=== PATIENT | male | born 1970 | race Caucasian/White ===

== ENCOUNTER 2017-02-01 15:40 | Emergency (ER) | payer BC, OTHER ==
[~2017-02-01] VITALS: Ht 182.9 cm; Wt 99.8 kg
[2017-02-01] MEDS ORDERED: SODIUM CHLORIDE 0.9% 1000 ML IV SCH (16:45)
[2017-02-01] MEDS ORDERED: ACETAMINOPHEN 325 MG TAB PO ONE (16:45)
[2017-02-01 17:40] LABS: ADD MORPHOLOGY? YES; BASO % 0.1 % (0.0-1.0); EOS % 0.3 % (0.0-3.0); LARGE UNSTAINED CELL # 0.2 K/mm3 (0.0-0.4); LARGE UNSTAINED CELL % 1.2 % (0.0-4.0); LYMPH # 0.8 K/mm3 (1.5-4.5); LYMPH % 5.3 % (24.0-44.0); MEAN CORPUSCULAR HEMOGLOBIN 20.8 pg (27.0-33.0); MEAN CORPUSCULAR HGB CONC 29.6 g/dl (32.0-36.5); MEAN CORPUSCULAR VOLUME 70.4 fl (80.0-96.0); MONO # 0.7 K/mm3 (0.0-0.8); MONO % 5.5 % (0.0-5.0); NEUTROPHILS # 10.8 K/mm3 (1.8-7.7); NEUTROPHILS % 87.5 % (36.0-66.0); PLATELET COUNT, AUTOMATED 271 k/mm3 (150-450); RED CELL DISTRIBUTION WIDTH 16.2 % (11.5-14.5); WHITE BLOOD COUNT 12.4 K/mm3 (4.0-10.0)
[2017-02-01 17:45] LABS: ALBUMIN 3.9 GM/DL (3.2-5.2); ALKALINE PHOSPHATASE 93 U/L (45-117); ALT/SGPT 15 U/L (12-78); ANION GAP 9 MEQ/L (8-16); AST/SGOT 14 U/L (15-37); BILIRUBIN,DIRECT 0.1 MG/DL (0.0-0.2); BILIRUBIN,TOTAL 0.6 MG/DL (0.2-1.0); BLOOD UREA NITROGEN 19 MG/DL (7-18); CALCIUM LEVEL 8.7 MG/DL (8.5-10.1); CARBON DIOXIDE LEVEL 25 MEQ/L (21-32); CHLORIDE LEVEL 105 MEQ/L (98-107); CREATININE FOR GFR 1.17 MG/DL (0.70-1.30); GLOMERULAR FILTRATION RATE > 60.0 (>60); GLUCOSE, FASTING 116 MG/DL (70-105); POTASSIUM SERUM 3.7 MEQ/L (3.5-5.1); SODIUM LEVEL 139 MEQ/L (136-145); TOTAL PROTEIN 7.8 GM/DL (6.4-8.2)
[2017-02-01] MEDS ORDERED: ISOVUE-370 76% 100ML VIAL (Q9967) As Ordered ONE (17:51)
[2017-02-01 17:56] LABS: INR 1.1
[2017-02-01 18:00] LABS: ANISOCYTOSIS 1+; HYPOCHROMASIA 1+; MICROCYTOSIS 2+; POLYCHROMASIA 1+
[2017-02-01 18:01] LABS: STOMATOCYTES 1+
--- NOTE | 2017-02-01 18:30 | REPUSA ---
CT of the abdomen and pelvis without contrast Clinical statement: Pain. Technique: Multiple axial CT images were obtained from the base of the lungs to the floor of the pelv is utilizing 5 mm axial slices without administration of contrast. Coronal and sagittal reconstructio ns were also obtained. No comparison is available. Findings: Chest: The visualized lung bases are clear. Abdomen: The kidneys are normal in size bilaterally. There is no evidence of hydronephrosis or nephro lithiasis. The liver, spleen, pancreas, gallbladder and adrenal glands are unremarkable. The aorta de monstrates normal caliber and contour. There is no abdominal lymphadenopathy or ascites. Pelvis: The bowel is unremarkable, with no obstructive or inflammatory changes. The patient is status post appendectomy. The urinary bladder is within normal limits. There is no pelvic lymphadenopathy o r ascites. The other pelvic structures appear unremarkable. Bones: There are no suspicious osseous abnormalities seen. Impression: Unremarkable CT examination of the abdomen and pelvis. No evidence of hydronephrosis or n ephrolithiasis. No obstructive or inflammatory bowel changes.
[2017-02-01] MEDS ORDERED: NS 1,000 ML IV ONE (19:00)
--- NOTE | 2017-02-01 19:42 | REP ---
TWO VIEW CHEST: There is no evidence of acute infiltrate. No pleural effusion is seen. The heart is normal in size. The mediastinal silhouette is unremarkable. The visualized osseous structures are intact. IMPRESSION: No acute pulmonary disease. Signed by Joel Samano MD 02/01/2017 08:39 P
[2017-02-01 20:50] VITALS: BP 135/75
--- NOTE | 2017-02-01 20:54 | ED PDOC ---
Provider Note DISCUSSED PT'S SYMPTOMS WITH PT AND FAMILY. DISCUSSED RESULTS FROM IMAGING AND LABWORK AND ADVISED DOES NOT MEET ADMISSION CRITERIA. PT PREFERS TO STAY, HE WENT TO URGENT CARE YESTERDAY, THEN [facility] [place] AND THEN [facility] TODAY FOR SAME SYMPTOMS. STATES HE IS WORRIED THAT HE WILL GO HOME AND FEEL THE SAME AND HAVE SYNCOPAL EPISODES WITH EXERTION. ADVISED THAT BECAUSE HE DOES NOT MEET ADMISSION CRITERIA, HIS INSURANCE WILL MOST LIKELY NOT COVER AN ADMISSION AND THERE IS NO PRESSING MATTER THAT REQUIRES IMMEDIATE ATTENTION AT THIS TIME. ADVISED WILL GIVE INFORMATION FOR FOLLOW UP WITH THE RESIDENT CLINIC, GENERAL SURGERY AND GI AND HE IS WELCOME TO CALL THESE OFFICES ON SATURDAY TO SCHEDULE APPOINTMENTS FOR FOLLOW UP. ALSO TO RETURN TO THE ER WITH ANY WORSENING SYMPTOMS. PT AND FAMILY VOICED UNDERSTANDING. JENIFFER BEAN PA-C Feb 01, 2017 20:54
== END 2017-02-01 21:11 | disposition home or self-care (01) ==
LOC: M ED 16:56
DX: R10.31 Right lower quadrant pain (principal); R10.32 Left lower quadrant pain; R19.5 Other fecal abnormalities; D64.9 Anemia, unspecified; I95.9 Hypotension, unspecified; J06.9 Acute upper respiratory infection, unspecified; R55 Syncope and collapse
CPT/HCPCS: 36415; 71020; 74177; 80048; 80076; 81001; 83690; 85025; 85610; 85730; 86850; 86900; 86901; 99284; Q9967

== ENCOUNTER → 2017-02-08 | Outpatient (REF) | payer BC ==
[2017-02-08 20:14] LABS: BASO % 0.2 % (0.0-1.0); EOS # 0.2 K/mm3 (0.0-0.50); EOS % 2.1 % (0.0-3.0); LYMPH # 1.6 K/mm3 (1.5-4.5); LYMPH % 15.6 % (24.0-44.0); MEAN CORPUSCULAR HEMOGLOBIN 20.6 pg (27.0-33.0); MEAN CORPUSCULAR HGB CONC 28.8 g/dl (32.0-36.5); MEAN CORPUSCULAR VOLUME 71.6 fl (80.0-96.0); MONO # 0.6 K/mm3 (0.0-0.8); MONO % 5.6 % (0.0-5.0); NEUTROPHILS # 7.4 K/mm3 (1.8-7.7); NEUTROPHILS % 75.6 % (36.0-66.0); RED CELL DISTRIBUTION WIDTH 15.9 % (11.5-14.5); RETIC HEMOGLOBIN CONTENT CHr 21.6 PG (24-36); RETICULOCYTE % ADVIA2120 2.9 % (0.5-1.5); WHITE BLOOD COUNT 9.8 K/mm3 (4.0-10.0)
[2017-02-08 20:17] LABS: PERCENT SATURATION 3.8 % (19.7-37.4)
[2017-02-08 20:24] LABS: FOLATE 18.1 NG/ML (>5.4)
== END ==
LOC: M LAB REF 16:18
PROVIDERS: ATTEND Family Medicine
DX: Z00.00 Encounter for general adult medical examination without abnormal findings (principal); D50.9 Iron deficiency anemia, unspecified; F32.9 Major depressive disorder, single episode, unspecified

== ENCOUNTER → 2017-02-27 | Outpatient (CLI) | payer BC ==
[~2017-02-27] VITALS: Ht 182.9 cm; Wt 99.8 kg
[~2017-02-27] MED LIST: IRON65TA PO; NS 1,000 ML IV SCH; PROPOFOL 500 MG/50 ML VIAL As Ordered ONE; RANI15TA PO; fentaNYL 100 MCG/2 ML INJECTION (J3010) As Ordered ONE
--- NOTE | 2017-02-27 14:50 | ROOR ---
Patient Name: Star Rosenbaum Procedure Date: 02/27/2017 2:18 PM Date of : 1970 Age: 47 Room: [facility] Gender: Male Note Status: Finalized Procedure: Upper GI endoscopy Indications: Iron deficiency anemia Providers: Gamaliel Quintero MD Referring MD: Lydia Lomas DO Requesting Provider: Medicines: Monitored Anesthesia Care Complications: No immediate complications. Procedure: Pre-Anesthesia Assessment: - Prior to the procedure, a History and Physical was performed, and patient medications and allergies were reviewed. The patient is competent. The risks and benefits of the procedure and the sedation options and risks were discussed with the patient. All questions were answered and informed consent was obtained. Patient identification and proposed procedure were verified by the physician, the nurse and the electric accounting machine operator in the endoscopy suite. Mental Status Examination: alert and oriented. Airway Examination: normal oropharyngeal airway and neck mobility. Respiratory Examination: clear to auscultation. CV Examination: normal. Prophylactic Antibiotics: The patient does not require prophylactic antibiotics. Prior Anticoagulants: The patient has taken no previous anticoagulant or antiplatelet agents. ASA Grade Assessment: I - A normal, healthy patient. After reviewing the risks and benefits, the patient was deemed in satisfactory condition to undergo the procedure. The anesthesia plan was to use monitored anesthesia care (MAC). Immediately prior to administration of medications, the patient was re-assessed for adequacy to receive sedatives. The heart rate, respiratory rate, oxygen saturations, blood pressure, adequacy of pulmonary ventilation, and response to care were monitored throughout the procedure. The physical status of the patient was re-assessed after the procedure. The Endoscope was introduced through the mouth, and advanced to the second part of duodenum. The upper GI endoscopy was accomplished without difficulty. The patient tolerated the procedure well. Findings: The examined esophagus was normal. The entire examined stomach was normal. The second portion of the duodenum was normal. Impression: - Normal esophagus. - Normal stomach. - Normal second portion of the duodenum. - No specimens collected. - Normal examination. Recommendation: - Discharge patient to home (ambulatory). Gamaliel Quintero MD Gamaliel Quintero MD 02/27/2017 2:49:50 PM This report has been signed electronically. Number of Addenda: 0 Note Initiated On: 02/27/2017 2:18 PM Estimated Blood Loss: Estimated blood loss: none.
--- NOTE | 2017-02-27 14:53 | ROOR ---
Patient Name: Star Rosenbaum Procedure Date: 02/27/2017 2:19 PM Date of : 1970 Age: 47 Room: [facility] Gender: Male Note Status: Finalized Procedure: Colonoscopy Indications: Iron deficiency anemia Providers: Gamaliel Quintero MD Referring MD: Lydia Lomas DO Requesting Provider: Medicines: Monitored Anesthesia Care Complications: No immediate complications. Estimated blood loss: Minimal. Procedure: Pre-Anesthesia Assessment: - Prior to the procedure, a History and Physical was performed, and patient medications and allergies were reviewed. The patient is competent. The risks and benefits of the procedure and the sedation options and risks were discussed with the patient. All questions were answered and informed consent was obtained. Patient identification and proposed procedure were verified by the physician, the nurse and the data governance consultant in the endoscopy suite. Mental Status Examination: alert and oriented. Airway Examination: normal oropharyngeal airway and neck mobility. Respiratory Examination: clear to auscultation. CV Examination: normal. Prophylactic Antibiotics: The patient does not require prophylactic antibiotics. Prior Anticoagulants: The patient has taken no previous anticoagulant or antiplatelet agents. ASA Grade Assessment: I - A normal, healthy patient. After reviewing the risks and benefits, the patient was deemed in satisfactory condition to undergo the procedure. The anesthesia plan was to use monitored anesthesia care (MAC). Immediately prior to administration of medications, the patient was re-assessed for adequacy to receive sedatives. The heart rate, respiratory rate, oxygen saturations, blood pressure, adequacy of pulmonary ventilation, and response to care were monitored throughout the procedure. The physical status of the patient was re-assessed after the procedure. The Colonoscope was introduced through the anus and advanced to the cecum, identified by appendiceal orifice and ileocecal valve. The colonoscopy was performed without difficulty. The patient tolerated the procedure well. The quality of the bowel preparation was good. Findings: The perianal and digital rectal examinations were normal. An ulcerated non-obstructing large mass was found in the cecum. The mass was partially circumferential (involving one-half of the lumen circumference). The mass measured two cm in length. No bleeding was present. This was biopsied with a cold forceps for histology. Estimated blood loss was minimal. No additional abnormalities were found on retroflexion. Impression: - Likely malignant tumor in the cecum. Biopsied. Recommendation: - Discharge patient to home (ambulatory). - Return to my office in 1 week. Gamaliel Quintero MD Gamaliel Quintero MD 02/27/2017 2:53:48 PM This report has been signed electronically. Number of Addenda: 0 Note Initiated On: 02/27/2017 2:19 PM Estimated Blood Loss: Estimated blood loss was minimal.
[2017-02-27 15:15] VITALS: BP 117/63
== END | disposition home or self-care (01) ==
LOC: M OPP 13:03
PROVIDERS: ATTEND Surgery
DX: D50.9 Iron deficiency anemia, unspecified (principal); C18.9 Malignant neoplasm of colon, unspecified; R10.84 Generalized abdominal pain; D62 Acute posthemorrhagic anemia; Z87.19 Personal history of other diseases of the digestive system; F41.9 Anxiety disorder, unspecified; F32.9 Major depressive disorder, single episode, unspecified; Z79.899 Other long term (current) drug therapy
CPT/HCPCS: 43235; 45380; 88305; 99156; 99157; J3010

== ENCOUNTER → 2017-02-28 | Outpatient (CLI) | payer BC ==
[~2017-02-28] MED LIST changes: -NS 1,000 ML IV SCH; -PROPOFOL 500 MG/50 ML VIAL As Ordered ONE; -fentaNYL 100 MCG/2 ML INJECTION (J3010) As Ordered ONE
--- NOTE | 2017-02-28 15:46 | REP ---
Clinical: Generalized abdominal pain. Technique: Supine and upright views of the abdomen and pelvis. Findings: Bowel gas pattern is nonspecific. Air-filled loops of small large bowel related to recent colonoscopy. No free air to suggest perforation. No organomegaly. No abnormal calcifications. Skeletal structures intact. Impression: Nonspecific bowel gas pattern. Signed by Joon Peñaloza MD 02/28/2017 03:38 P
== END ==
LOC: M RAD 15:08
PROVIDERS: ATTEND Surgery
DX: R10.84 Generalized abdominal pain (principal)

== ENCOUNTER → 2017-04-25 | Outpatient (REF) | payer BC ==
[2017-04-25 17:49] LABS: INR 1.06
== END ==
LOC: M LAB REF 16:26
PROVIDERS: ATTEND Internal Medicine Medical Oncology
DX: C18.0 Malignant neoplasm of cecum (principal)

== ENCOUNTER 2017-07-13 16:33 | Inpatient (IN) | payer BC ==
[~2017-07-13] VITALS: Ht 182.9 cm; Wt 90.8 kg
[2017-07-13] MEDS ORDERED: ONDA8TAB7 PO (16:43)
[2017-07-13] MEDS ORDERED: IMOD2TAB16 PO (16:43)
[2017-07-13] MEDS ORDERED: BUPR15TASR PO (16:43)
[2017-07-13 17:35] LABS: MEAN CORPUSCULAR HEMOGLOBIN 26.2 pg (27.0-33.0); MEAN CORPUSCULAR HGB CONC 34.6 g/dl (32.0-36.5); MEAN CORPUSCULAR VOLUME 75.6 fl (80.0-96.0); RED CELL DISTRIBUTION WIDTH 17.9 % (11.5-14.5); WHITE BLOOD COUNT 4.4 K/mm3 (4.0-10.0)
[2017-07-13 17:39] LABS: INR 0.95
[2017-07-13 17:59] LABS: ANION GAP 6 MEQ/L (8-16); BLOOD UREA NITROGEN 22 MG/DL (7-18); CALCIUM LEVEL 8.4 MG/DL (8.5-10.1); CARBON DIOXIDE LEVEL 30 MEQ/L (21-32); CHLORIDE LEVEL 101 MEQ/L (98-107); CREATININE FOR GFR 1.16 MG/DL (0.70-1.30); GLOMERULAR FILTRATION RATE > 60.0 (>60); GLUCOSE, FASTING 125 MG/DL (70-105); POTASSIUM SERUM 4.2 MEQ/L (3.5-5.1); SODIUM LEVEL 137 MEQ/L (136-145)
[2017-07-13] MEDS ORDERED: ISOVUE-370 76% 100ML VIAL (Q9967) As Ordered ONE (18:26)
--- NOTE | 2017-07-13 19:30 | REPUSA ---
CLINICAL HISTORY: Chest pain and shortness of breath. COMPARISON: No prior CTA of the chest available TECHNIQUE: A CT-pulmonary angiogram was performed. A dose of intravenous contrast was administered. A xial images were displayed, as were sagittal and coronal reconstructions. FINDINGS: Port is present in the right chest wall and terminating in the superior vena cava. There is evidence of extensive filling defect involving the right main pulmonary artery as well as ex tending into the right middle segmental and subsegmental branches of the right middle lobe and right lower lobe. The heart is enlarged. There is bilateral hilar adenopathy noted, non-specific possibly reactive. Note is made of bibasilar consolidations that may represent atelectasis versus pneumonia. On the righ t side consolidation may represent a pulmonary infarct. There is no evidence of thoracic aortic aneurysm or dissection. There is no evidence of pulmonary edema. No significant pleural or pericardial fluid collection is s een. There is no evidence of pneumothorax. Mild degenerative changes are noted in the spine. The included portion of the upper abdomen does not show significant abnormality. Small hiatal hernia is present. IMPRESSION: 1. Extensive PE on the right as discussed above. 2. Bilateral hilar adenopathy. 3. Bibasilar consolidations as above. 4. Small hiatal hernia. The findings are communicated to Jhony Dominguez at 7-15pm EST.
[2017-07-13] MEDS ORDERED: TYLE325T5 PO (20:01)
[2017-07-13] MEDS ORDERED: BUPR150T3 PO (20:01)
[2017-07-13] MEDS ORDERED: BISACODYL 5 MG TAB PO PRN (20:15)
[2017-07-13] MEDS ORDERED: HEPARIN SOD (PORCINE) 5000 UNITS/ML VIAL IV PRN (20:15)
[2017-07-13] MEDS ORDERED: ACETAMINOPHEN TAB 650MG DOSE (2X325MG) PO PRN (20:15)
[2017-07-13] MEDS ORDERED: HEPARIN SOD (PORCINE) 5000 UNITS/ML VIAL IV ONE (21:00)
[2017-07-13] MEDS: HEPARIN DRIP 25,000 UNITS in APPROPRIATE DILUENT 1 EA IV SCH (21:06)
[2017-07-13] MEDS ORDERED: SENOKOT S TAB PO PRN (22:00)
[2017-07-13] MEDS ORDERED: MOM 30ML SUSPENSION UDC PO PRN (22:00)
[2017-07-13] MEDS: MORPHINE 4 MG/ML 1ML SYRINGE IV PRN (22:54)
[2017-07-13] MEDS: ONDANSETRON 4MG/2ML VIAL (J2405) IV PRN (22:57)
[2017-07-13] MEDS ORDERED: KETOROLAC 30 MG/ML VIAL (J1885) IV ONE (23:00)
[2017-07-13] MEDS ORDERED: PERCOCET 5MG/325MG TAB PO ONE (23:00)
[2017-07-13] MEDS ORDERED: MORPHINE 2 MG/ML 1ML SYRINGE IV ONE (23:00)
--- NOTE | 2017-07-13 23:36 | HPE ---
DATE OF ADMISSION: 07/13/2017 PRIMARY CARE PROVIDER: Lydia Lomas DO. HOSPITALIST ATTENDING: Fredi Hemphill MD. GENERAL SURGEON: Gamaliel Quintero MD. MEDICAL ONCOLOGIST: Jennifer. CHIEF COMPLAINT: Right-sided chest and back pain HPI: 47 y/o male with past medical history significant for Adenocarcinoma of the colon diagnosed by colonoscopy 02/15 as workup for chronic iron deficiency anemia and chronic fatigue and near syncopal episodes, s/p four cycles of chemo- therapy last saturday with FOLFOX and 5-FU by Dr. Vela in [place] with plans for 12 cycles of chemotherapy presents to the emergency with several days of right-sided chest pain/shoulder pain radiating to the back between the ribs, sharp, shooting, and persistent associated with shortness of breath without diaphoresis, palpitations or lightheadedness. Patient describes the pain as worse with expiration, unable to sleep flat on the bed and has been sitting up. No pain meds taken at home. He denies palpitations, lightheadedness, or near syncopal episode. In the emergency room (ER), he was found to be afebrile. He denies any cough productive of sputum, fever or chills. White count was normal. CT of the chest shows extensive pulmonary embolism in the right main pulmonary artery extending into the right middle segmental and subsegmental branches of the right middle lobe and right lower lobe, reactive hilar adenopathy. Hospitalist service was called for admission for extensive right pulmonary embolism. The patient denies any fever, chills, headaches, changes in vision, ear discharge, tinnitus, rhinorrhea, sore throat, cough productive of sputum, nausea , vomiting, abdominal pain. Patient has a colostomy on the right. No weakness. No upper or lower extremity paresthesias. PAST MEDICAL HISTORY: 1. Adenocarcinoma of the colon s/p right hemicolectomy and colostomy.02/15 2. Iron deficiency anemia due to colon cancer 3. Anxiety. 4. Depression. PAST SURGICAL HISTORY: 1. Appendectomy. 2. Deviated septum repair 1986. 3. Wrist surgery 1998. 4. Elective cyst removal on the scalp. 5. 02/15 Right hemicolectomy, right colostomy HOME MEDICATIONS: - patient had undergone four cycles of FOLFOX 5-FU, plans for 12 cycles of chemotherapy - bupropion 150 twice a day - loperamide 2 mg every four as needed - Zofran 8 mg every 8 hours - acetaminophen 650 every 6 hours as needed for pain ALLERGIES: To MINOCYCLINE. SOCIAL HISTORY: Works as a schoolteacher. Denies any cigarette, alcohol use. FAMILY HISTORY: Grandfather maternal side with heart disease, of congestive heart failure, was on warfarin. Mother, father unknown medical problems. REVIEW OF SYSTEMS: 12-point system negative aside from positive findings from history of present illness (HPI). PHYSICAL EXAMINATION: Temperature 97.5, pulse 103, respiratory rate 18, blood pressure 111/75, 97% on room air. Generally, patient is awake, alert, oriented times three, answering questions appropriately. Pupils are equally round and reactive to light and accommodation. Extraocular muscles are intact. Anicteric sclerae. No jaundice. No pharyngeal erythema, tonsillar exudate or jugular venous distention. No cervical lymphadenopathy. Lungs: Symmetric breath sounds. Air entry is equal bilaterally. Clear to auscultation. No wheezing, rales or rhonchi. Right chest wall port. Entrance appears dry. No erythema or tenderness. Heart: S1, S2, sinus tachycardia. No murmurs, rubs or gallops. Abdomen is soft. Right colostomy bag is noted with a wound in the periumbilical area that appears clean with no drainage, no erythema, no significant tenderness. Positive bowel sounds times four quadrants. No rebound, guarding or hepatosplenomegaly. Extremities have no cyanosis, clubbing or any pitting edema. Skin is warm, pink in color, warm to touch. LABORATORY DATA: White count 4.4, hemoglobin 12, hematocrit 34, platelet count 153. Sodium 137, potassium 4.2, chloride 101, bicarbonate 30, BUN 22, creatinine 1.16 , glucose 125, calcium 8.4. INR 0.95, PTT 27. IMAGING STUDIES: CT chest shows extensive PE extending from the right main pulmonary artery into the right middle segmental, subsegmental branches of the right middle lobe and right lower lobe. A port is present in right chest wall terminating in superior vena cava. Heart is enlarged. Bilateral hilar adenopathy, nonspecific, possibly reactive. Bibasilar consolidations may represent atelectasis versus pneumonia. Consolidation may represent pulmonary infarct. No evidence of thoracic aneurysm or dissection. No evidence of pulmonary edema. No significant pleural or pericardial fluid collection. There is no evidence of pneumothorax. Small hiatal hernia is present. 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 Patient is undergoing chemotherapy status post right hemicolectomy complicated by abscess and drainage in the abdomen. Completed four cycles of FOLFOX and 5-FU with Dr. Vela in [place] with plans for 12 cycles of chemotherapy, presents with complaints of shooting sharp pain on the right shoulder into the back, chest, worse when he lies back accompanied with shortness of breath, found to have extensive filling defect involving the right main pulmonary artery extending into the right middle segmental and subsegmental branches of the right middle and right lower lobe admitted for anticoagulation. Patient will be admitted as an inpatient for two midnights assigned to Dr. Fredi Hemphill. IMPRESSION: 1. Pulmonary embolism. CT chest shows extensive filling defect involving the right main pulmonary artery into the right middle segmental and subsegmental branches of the right middle lobe and right lower lobe with bilateral hilar adenopathy most likely reactive, bibasilar consolidation may be atelectasis versus pneumonia. Patient will be given intravenous heparin and Coumadin after 24 hours of intravenous heparin. If the patient is reluctant to stay until the international normalized ratio (INR) is greater than two with goal of 2-3, another option would be Lovenox injections at 90 units subcutaneously every 12 hours,which clinical studies have shown to be superior in the treatment of PE in patients with malignancy or history of malignancy. These 2 treatment options have been explained to the patient. Lovenox will most likely need prior authorization. Patient and family services (PFS) should be consulted should the patient decide not to stay for heparin and Coumadin anticoagulation. Because of the extensive clots extending from the right main pulmonary artery including the right middle segmental, subsegmental branches of the right middle lobe and right lower lobe, other anticoagulants would not be approriate at this time. Therefore, we will not consider Pradaxa, Eliquis or Xarelto due to extensive clot and significant risk factors including malignancy, recent surgery. He is most appropriate to have Lovenox injections or heparin and Coumadin until the Coumadin is therapeutic with INR of 2-3. Patient will be monitored for any signs of bleeding and monitor patient's platelet counts for possible Heparin induced thrombocytopenia. 2. Adenocarcinoma of the colon diagnosed January 2017 status post four cycles of FOLFOX, 5-FU by Dr. Vela in [place]. Last chemotherapy was on Saturday. He is to complete 12 cycles of chemotherapy with no plans for radiation. Patient has a right colostomy. Appears to be working well. Complicated by an abscess around the periumbilical area, currently appears well healed with no drainage, erythema or significant tenderness. 3. Anxiety, depression. Resume home dose of bupropion. 4. Pain control with intravenous (IV) morphine as needed, as well as Percocet 1-2 tablets every four with bowel regimen Senokot-S and milk of magnesia. 5. Gastrointestinal (GI) prophylaxis. With Protonix. 6. Code status. FULL CODE. Patient will be assigned to Dr. rFedi Hemphill at 7 a.m. on 07/14/2017. cc: Lydia Lomas MD. [facility]
[2017-07-14 00:31] VITALS: BP 142/87
[2017-07-14] MEDS: MORPHINE 4 MG/ML 1ML SYRINGE IV PRN ×4 (02:28→22:19)
[2017-07-14 03:20] LABS: BASO % 0.5 % (0.0-1.0); EOS # 0.2 K/mm3 (0.0-0.50); EOS % 3.2 % (0.0-3.0); LARGE UNSTAINED CELL # 0.1 K/mm3 (0.0-0.4); LARGE UNSTAINED CELL % 1.7 % (0.0-4.0); LYMPH % 38.2 % (24.0-44.0); MEAN CORPUSCULAR HEMOGLOBIN 25.2 pg (27.0-33.0); MEAN CORPUSCULAR HGB CONC 32.9 g/dl (32.0-36.5); MEAN CORPUSCULAR VOLUME 76.7 fl (80.0-96.0); MONO # 0.3 K/mm3 (0.0-0.8); MONO % 5.1 % (0.0-5.0); NEUTROPHILS # 2.5 K/mm3 (1.8-7.7); NEUTROPHILS % 51.2 % (36.0-66.0); PLATELET COUNT, AUTOMATED 137 k/mm3 (150-450); RED CELL DISTRIBUTION WIDTH 18.8 % (11.5-14.5); WHITE BLOOD COUNT 4.9 K/mm3 (4.0-10.0)
[2017-07-14 03:31] LABS: INR 1.14
[2017-07-14 03:53] LABS: ANION GAP 9 MEQ/L (8-16); BLOOD UREA NITROGEN 22 MG/DL (7-18); CALCIUM LEVEL 8.5 MG/DL (8.5-10.1); CARBON DIOXIDE LEVEL 27 MEQ/L (21-32); CHLORIDE LEVEL 102 MEQ/L (98-107); CREATININE FOR GFR 1.08 MG/DL (0.70-1.30); GLOMERULAR FILTRATION RATE > 60.0 (>60); GLUCOSE, FASTING 111 MG/DL (70-105); POTASSIUM SERUM 3.3 MEQ/L (3.5-5.1); SODIUM LEVEL 138 MEQ/L (136-145)
[2017-07-14 04:00] VITALS: BP 129/85
[2017-07-14] MEDS: PERCOCET 5MG/325MG TAB PO PRN ×3 (06:23→17:02)
--- NOTE | 2017-07-14 07:29 | ECGEPIP ---
Stationary ECG Study [facility] - ED Test Date: 2017-07-13 Pat Name: CYNDI TRINIDAD Department: Room: [place] [address] Gender: M [employer] Facility Examiner: : 1970 Requested By: MATTHEW HANSON Order Number: [id number] Reading MD: Padmaja Haider Measurements Intervals [place] Rate: 85 P: 53 [place]: 190 QRS: -18 QRSD: 96 T: 53 QT: 381 QTc: 455 Interpretive Statements SINUS RHYTHM MODERATE ST DEPRESSION NO PRIOR FOR COMPARISON Electronically Signed On 07-14-2017 7:28:51 EDT by Padmaja Haider
[2017-07-14] MEDS ORDERED: POTASSIUM CHLORIDE 10 MEQ SR TABLET PO ONE (07:30)
--- NOTE | 2017-07-14 07:30 | REP ---
PA and lateral chest: Comparison is 02/01/2017. The lung oconnell are clear. Cardiac size is normal. The karrie, mediastinum, and bony thorax are unchanged. There is an indwelling right IJ central venous catheter with the tip at the confluence of the superior vena cava and right atrium, not present previously. Impression: No acute cardiopulmonary findings. Indwelling right IJ central venous catheter. Signed by Joel Melendez MD 07/14/2017 07:22 A
[2017-07-14 08:00] VITALS: BP 110/58
[2017-07-14] MEDS: buPROPion **XL** TABLET 150MG (WELLBUTRIN XL) PO SCH ×2 (08:46→20:59)
[2017-07-14] MEDS: PANTOPRAZOLE 40MG TAB (PROTONIX) PO SCH (08:46)
[2017-07-14] MEDS ORDERED: NS 1,000 ML IV ONE (09:00)
[2017-07-14] MEDS: HEPARIN DRIP 25,000 UNITS in APPROPRIATE DILUENT 1 EA IV SCH ×3 (10:15→20:59)
--- NOTE | 2017-07-14 11:45 | IPNPDOC ---
Text Note Date of Service The patient was seen on 07/14/17. NOTE Subjective: Patient states chest pain has significantly improved. No nausea/ vomiting. Occasionally has loose stools. Objective: Vitals: (see below) General: No acute distress, laying comfortably in bed. HEENT: Moist mucous membranes. Neck: No JVD or lymphadenopathy Cardiac: RRR, No murmurs Pulm: Clear to auscultation b/l. No wheezing, rhonchi Abd: NT/ND + BS. Ostomy in place. No leak. Ext: No edema or cyanosis Labs (see below) Images: CTA Chest 07/13/17 FINDINGS: Port is present in the right chest wall and terminating in the superior vena cava. There is evidence of extensive filling defect involving the right main pulmonary artery as well as extending into the right middle segmental and subsegmental branches of the right middle lobe and right lower lobe. The heart is enlarged. There is bilateral hilar adenopathy noted, non-specific possibly reactive. Note is made of bibasilar consolidations that may represent atelectasis versus pneumonia. On the right side consolidation may represent a pulmonary infarct. There is no evidence of thoracic aortic aneurysm or dissection. There is no evidence of pulmonary edema. No significant pleural or pericardial fluid collection is seen. There is no evidence of pneumothorax. Mild degenerative changes are noted in the spine. The included portion of the upper abdomen does not show significant abnormality. Small hiatal hernia is present. IMPRESSION: 1. Extensive PE on the right as discussed above. 2. Bilateral hilar adenopathy. 3. Bibasilar consolidations as above. 4. Small hiatal hernia. Assessment/Plan 1. Extensive PE- patient does have underlying malignancy for which she is undergoing chemotherapy. Patient is on heparin drip. We will change patient to Lovenox subcutaneous tomorrow after insurance confirmation. Echocardiogram to evaluate RV function pending. CE negative. Hemodynamically stable and not requiring O2. Will reach out to his oncologist tomorrow. 2. Hypokalemia - replaced. 3. Colon ca s/p hemicolectomy/ostomy - on chemo cycle 4 out of 12. F/u outpt. 4. NORAH - ferrous sulfate 5. B/l hilar adenopathy - ? reactive. No cough. Will need outpt f/u with ?PET scan with oncology. DVT prophy: Heparin VS,Fishbone, I+O VS, Fishbone, I+O Laboratory Tests 07/13/17 17:27 Red Blood Count 4.59, Mean Corpuscular Volume 75.6 L, Mean Corpuscular Hemoglobin 26.2 L, Mean Corpuscular Hemoglobin Concent 34.6, Red Cell Distribution Width 17.9 H, Calcium Level 8.4 L 07/14/17 03:07 Red Blood Count 4.72, Mean Corpuscular Volume 76.7 L, Mean Corpuscular Hemoglobin 25.2 L, Mean Corpuscular Hemoglobin Concent 32.9, Red Cell Distribution Width 18.8 H, Calcium Level 8.5, Neutrophils (%) (Auto) 51.2, Lymphocytes (%) (Auto) 38.2, Monocytes (%) (Auto) 5.1 H, Eosinophils (%) (Auto) 3.2 H, Basophils (%) (Auto) 0.5, Neutrophils # (Auto) 2.5, Lymphocytes # (Auto) 2.0, Monocytes # (Auto) 0.3, Eosinophils # (Auto) 0.2, Basophils # (Auto) 0.0, Total Creatine Kinase 49 Vital Signs Date Time Temp Pulse Resp B/P (MAP) Pulse Ox O2 Delivery O2 Flow Rate FiO2 07/14/17 10:56 20 Room Air 07/14/17 08:00 98.6 73 110/58 (75) 96 I&O- Last 24 Hours up to 6 AM 07/14/17 06:00 Intake Total 435 ml Output Total 275 ml Balance 160 ml SOHAN CRAWFORD MD Jul 14, 2017 11:45
--- NOTE | 2017-07-14 13:22 | ECHO ---
DATE OF SERVICE: 07/14/2017 REFERRING PROVIDER: Dr. Fredi Hemphill PATIENT LOCATION: Room 3212. REASON FOR THE ECHOCARDIOGRAM: Pulmonary embolism. 2D MEASUREMENTS: IVS: 1.1 cm LV: 4.7 cm LVPW: 1.1 cm LA: 2.9 cm Aorta: 3.3 cm DOPPLER MEASUREMENTS: Peak velocity across the aortic valve: 0.98 Peak velocity across the LVOT: 0.72 Mitral E: 0.51 Mitral A: 0.52 with a ratio of 1.0 2D COMMENTS: 1. Normal left ventricular size, wall thickness, and normal global left ventricular systolic function. The estimated left ventricular systolic ejection fraction is 60-65%. 2. Normal left atrium. Normal right atrium and right ventricle. 3. The atrial septum appeared to be normal without evidence of defect or shunt. 4. Normal aortic root. 5. Trace pericardial effusion noted, no evidence of cardiac tamponade. 6. The aortic valve, mitral valve, and tricuspid valve as well as the pulmonic valve appeared to be normal. The proximal pulmonary artery branches were not well visualized. 7. The inferior vena cava was not well visualized. DOPPLER: Only trace tricuspid regurgitation noted in limited views. The pulmonary artery systolic pressure is probably normal. Left ventricular diastolic parameters also appear to be normal. IMPRESSION: 1. Normal global left ventricular systolic function. Left ventricular diastolic function appeared to be normal. 2. Trace pericardial effusion, no evidence of cardiac tamponade. 3. The right heart chambers appeared to be normal. Could not accurately assess the pulmonary pressure, but it is probably normal. MTDD
[2017-07-14] MEDS: CALCIUM CARBONATE 500 MG CHEW U/D PO PRN ×2 (14:59→22:31)
[2017-07-14 16:00] VITALS: BP 132/81
[2017-07-14] MEDS ORDERED: WARFARIN SOD 5 MG TAB PO ONE (17:00)
[2017-07-14] MEDS: ONDANSETRON 4MG/2ML VIAL (J2405) IV PRN (19:29)
[2017-07-14 20:00] VITALS: BP 133/70
[2017-07-15] VITALS: BP 117/60
[2017-07-15 00:14] LABS: INR 1.07
[2017-07-15] MEDS ORDERED: SLF 3 ML SYR IV PRN (00:45)
[2017-07-15] MEDS: PERCOCET 5MG/325MG TAB PO PRN ×3 (01:09→19:39)
[2017-07-15 04:00] VITALS: BP 126/76
[2017-07-15 05:33] LABS: BASO % 0.4 % (0.0-1.0); EOS # 0.2 K/mm3 (0.0-0.50); EOS % 5.4 % (0.0-3.0); LARGE UNSTAINED CELL # 0.1 K/mm3 (0.0-0.4); LYMPH # 1.4 K/mm3 (1.5-4.5); LYMPH % 37.6 % (24.0-44.0); MEAN CORPUSCULAR HEMOGLOBIN 26.4 pg (27.0-33.0); MEAN CORPUSCULAR HGB CONC 34.5 g/dl (32.0-36.5); MEAN CORPUSCULAR VOLUME 76.5 fl (80.0-96.0); MONO # 0.2 K/mm3 (0.0-0.8); MONO % 4.5 % (0.0-5.0); NEUTROPHILS # 1.9 K/mm3 (1.8-7.7); NEUTROPHILS % 50.1 % (36.0-66.0); PLATELET COUNT, AUTOMATED 171 k/mm3 (150-450); RED CELL DISTRIBUTION WIDTH 18.2 % (11.5-14.5); WHITE BLOOD COUNT 3.8 K/mm3 (4.0-10.0)
[2017-07-15 05:42] LABS: INR 1.07
[2017-07-15 05:56] LABS: ANION GAP 8 MEQ/L (8-16); BLOOD UREA NITROGEN 17 MG/DL (7-18); CARBON DIOXIDE LEVEL 26 MEQ/L (21-32); CHLORIDE LEVEL 107 MEQ/L (98-107); CREATININE FOR GFR 0.96 MG/DL (0.70-1.30); GLOMERULAR FILTRATION RATE > 60.0 (>60); GLUCOSE, FASTING 120 MG/DL (70-105); POTASSIUM SERUM 3.8 MEQ/L (3.5-5.1); SODIUM LEVEL 141 MEQ/L (136-145)
[2017-07-15] MEDS: SLF 3 ML SYR IV SCH ×3 (06:40→23:03)
[2017-07-15 08:00] VITALS: BP 117/61
[2017-07-15] MEDS: PANTOPRAZOLE 40MG TAB (PROTONIX) PO SCH (08:39)
[2017-07-15] MEDS: buPROPion **XL** TABLET 150MG (WELLBUTRIN XL) PO SCH ×2 (08:39→21:04)
[2017-07-15] MEDS ORDERED: LOVE0.6I2 SC (10:22)
[2017-07-15 12:00] VITALS: BP 129/76
[2017-07-15] MEDS: HEPARIN DRIP 25,000 UNITS in APPROPRIATE DILUENT 1 EA IV SCH (12:41)
--- NOTE | 2017-07-15 13:32 | DS.PDOC ---
Discharge Summary General Date of Admission Jul 13, 2017 at 20:05 Date of Discharge 07/16/17 Attending Physician: SOHAN CRAWFORD MD Discharge Summary PROCEDURES PERFORMED DURING STAY: None. ADMITTING/DISCHARGE DIAGNOSES: 1. Acute Pulmonary Embolism 2. Hypokalemia - replaced. 3. Colon ca s/p hemicolectomy/ostomy - on chemo cycle 4 out of 12. 4. NORAH 5. B/l hilar adenopathy - ? reactive. 6. Skin lesion - f/u outpt. COMPLICATIONS/CHIEF COMPLAINT: CP HISTORY OF PRESENT ILLNESS/HOSPITAL COURSE: This is a 47-year-old male past medical history of colon cancer status post resection who is currently on chemotherapy for 12 cycles who presents complaining of chest pain and shortness of breath. Patient was found to have an extensive pulmonary embolism involving the right main pulmonary artery as well as extending to the right middle segmental and subsegmental branches of the right middle lobe and right lower lobe. The patient remained hemodynamically stable and was not hypoxic. Over the course of hospitalization, the patient's chest pain has improved on anticoagulation. He also did have an echocardiogram with normal RV function. Given that the patient does have recurrent malignancy and acute pulmonary embolism, he will be maintained on enoxaparin twice a day. He also noted a few areas that appear to be scab-like on the left shoulder, very small lesions for which she will be following up with his oncologist for possible dermatology referral. Patient is to follow-up with his primary care physician and oncologist in the next 1-2 weeks. Patient is return to ED if symptoms worsen. DISCHARGE MEDICATIONS: Please see below. ALLERGIES: Please see below. PHYSICAL EXAMINATION ON DISCHARGE: Vitals: (see below) General: No acute distress, laying comfortably in bed. HEENT: Moist mucous membranes. Neck: No JVD or lymphadenopathy Cardiac: RRR, No murmurs Pulm: Clear to auscultation b/l. No wheezing, rhonchi Abd: NT/ND + BS Ext: No edema or cyanosis LABORATORY DATA: Please see below. IMAGING: CTA Chest 07/13/17 FINDINGS: Port is present in the right chest wall and terminating in the superior vena cava. There is evidence of extensive filling defect involving the right main pulmonary artery as well as extending into the right middle segmental and subsegmental branches of the right middle lobe and right lower lobe. The heart is enlarged. There is bilateral hilar adenopathy noted, non-specific possibly reactive. Note is made of bibasilar consolidations that may represent atelectasis versus pneumonia. On the right side consolidation may represent a pulmonary infarct. There is no evidence of thoracic aortic aneurysm or dissection. There is no evidence of pulmonary edema. No significant pleural or pericardial fluid collection is seen. There is no evidence of pneumothorax. Mild degenerative changes are noted in the spine. The included portion of the upper abdomen does not show significant abnormality. Small hiatal hernia is present. IMPRESSION: 1. Extensive PE on the right as discussed above. 2. Bilateral hilar adenopathy. 3. Bibasilar consolidations as above. 4. Small hiatal hernia. PROGNOSIS: Guarded ACTIVITY: As tolerated. DIET: Regular diet DISCHARGE PLAN/DISPOSITION: Home DISCHARGE INSTRUCTIONS: 1. F/u with PCP and oncology in 1-2 weeks. DISCHARGE CONDITION: Stable. TIME SPENT ON DISCHARGE: Greater than 30 minutes. Vital Signs/I&Os Vital Signs Date Time Temp Pulse Resp B/P (MAP) Pulse Ox O2 Delivery O2 Flow Rate FiO2 07/15/17 12:00 96.2 72 18 129/76 (93) 98 Room Air I&O- Last 24 Hours up to 6 AM 07/15/17 06:00 Intake Total 2062 ml Output Total 4745 ml Balance -2683 ml Laboratory Data Labs 24H Laboratory Tests 2 07/14/17 16:34: Activated Partial Thromboplast Time 95.5H 07/14/17 23:35: Activated Partial Thromboplast Time 78.5H, Prothrombin Time 14.1, Prothromb Time International Ratio 1.07 07/15/17 05:06: Activated Partial Thromboplast Time 99.4H, Prothrombin Time 14.0, Prothromb Time International Ratio 1.07, White Blood Count 3.8L, Red Blood Count 4.17L, Hemoglobin 11.0L, Hematocrit 31.9L, Mean Corpuscular Volume 76.5L, Mean Corpuscular Hemoglobin 26.4L, Mean Corpuscular Hemoglobin Concent 34.5, Red Cell Distribution Width 18.2H, Platelet Count 171, Neutrophils (%) (Auto) 50.1, Lymphocytes (%) (Auto) 37.6, Monocytes (%) (Auto) 4.5, Eosinophils (%) (Auto) 5.4H, Basophils (%) (Auto) 0.4, Neutrophils # (Auto) 1.9, Lymphocytes # (Auto) 1.4L, Monocytes # (Auto) 0.2, Eosinophils # (Auto) 0.2, Basophils # (Auto) 0.0, Large Unclassified Cells % 2.0, Large Unclassified Cells # 0.1, Anion Gap 8, Glomerular Filtration Rate > 60.0, Blood Urea Nitrogen 17, Creatinine 0.96, Sodium Level 141, Potassium Level 3.8, Chloride Level 107, Carbon Dioxide Level 26, Calcium Level 8.0L CBC/BMP Laboratory Tests 07/15/17 05:06 Red Blood Count 4.17 L, Mean Corpuscular Volume 76.5 L, Mean Corpuscular Hemoglobin 26.4 L, Mean Corpuscular Hemoglobin Concent 34.5, Red Cell Distribution Width 18.2 H, Neutrophils (%) (Auto) 50.1, Lymphocytes (%) (Auto) 37.6, Monocytes (%) (Auto) 4.5, Eosinophils (%) (Auto) 5.4 H, Basophils (%) ( Auto) 0.4, Neutrophils # (Auto) 1.9, Lymphocytes # (Auto) 1.4 L, Monocytes # ( Auto) 0.2, Eosinophils # (Auto) 0.2, Basophils # (Auto) 0.0, Calcium Level 8.0 L Microbiology Microbiology 07/15/17 Gastrointestinal Tract Panel (PCR) - Final, Complete 07/14/17 Stool Occult Blood (DAVID) - Final, Complete Discharge Medications Scheduled Bupropion Hcl (Bupropion HCl Xl) 150 Mg Tab, 150 MG PO BID, (Reported) Enoxaparin (Lovenox) 80 Mg/0.8 Ml Syr, 90 MG SC BID Scheduled PRN Acetaminophen (Tylenol) 325 Mg Tab, 650 MG PO Q6H PRN for PAIN, (Reported) Loperamide Hcl (Imodium A-D) 2 Mg Tab, 2 MG PO Q4H PRN for DIARRHEA, (Reported) Ondansetron HCl (Ondansetron HCl) 8 Mg Tab, 8 MG PO Q8H PRN for NAUSEA, ( Reported) Allergies Coded Allergies: Minocycline (Verified Allergy, Unknown, 02/27/17) SOHAN CRAWFORD MD Jul 15, 2017 13:32
[2017-07-15 16:00] VITALS: BP 143/82
[2017-07-15] MEDS: ENOXAPARIN 100MG/1ML SYRINGE (J1650) SC SCH (18:33)
[2017-07-15] MEDS: CALCIUM CARBONATE 500 MG CHEW U/D PO PRN (19:39)
[2017-07-15] MEDS: LOPERAMIDE 2 MG CAP PO PRN ×2 (19:39→23:37)
[2017-07-15 20:00] VITALS: BP 137/68
[2017-07-16] VITALS: BP 126/76
[2017-07-16 04:45] VITALS: BP 118/68
[2017-07-16] MEDS: SLF 3 ML SYR IV SCH ×3 (05:21→22:11)
[2017-07-16 06:05] LABS: INR 0.99
[2017-07-16 06:21] LABS: ANION GAP 8 MEQ/L (8-16); BLOOD UREA NITROGEN 9 MG/DL (7-18); CALCIUM LEVEL 8.1 MG/DL (8.5-10.1); CARBON DIOXIDE LEVEL 27 MEQ/L (21-32); CHLORIDE LEVEL 106 MEQ/L (98-107); CREATININE FOR GFR 0.88 MG/DL (0.70-1.30); GLOMERULAR FILTRATION RATE > 60.0 (>60); GLUCOSE, FASTING 111 MG/DL (70-105); POTASSIUM SERUM 3.7 MEQ/L (3.5-5.1); SODIUM LEVEL 141 MEQ/L (136-145)
[2017-07-16 06:22] LABS: BASO % 0.4 % (0.0-1.0); EOS # 0.2 K/mm3 (0.0-0.50); EOS % 4.9 % (0.0-3.0); LARGE UNSTAINED CELL # 0.2 K/mm3 (0.0-0.4); LARGE UNSTAINED CELL % 4.2 % (0.0-4.0); LYMPH # 1.6 K/mm3 (1.5-4.5); LYMPH % 34.5 % (24.0-44.0); MEAN CORPUSCULAR HGB CONC 33.9 g/dl (32.0-36.5); MEAN CORPUSCULAR VOLUME 76.7 fl (80.0-96.0); MONO # 0.3 K/mm3 (0.0-0.8); MONO % 5.7 % (0.0-5.0); NEUTROPHILS # 2.3 K/mm3 (1.8-7.7); NEUTROPHILS % 50.2 % (36.0-66.0); PLATELET COUNT, AUTOMATED 180 k/mm3 (150-450); RED CELL DISTRIBUTION WIDTH 18.4 % (11.5-14.5); WHITE BLOOD COUNT 4.5 K/mm3 (4.0-10.0)
[2017-07-16] MEDS: ENOXAPARIN 100MG/1ML SYRINGE (J1650) SC SCH ×2 (06:47→18:29)
[2017-07-16 07:30] VITALS: BP 144/81
[2017-07-16] MEDS: PANTOPRAZOLE 40MG TAB (PROTONIX) PO SCH (08:34)
[2017-07-16] MEDS: buPROPion **XL** TABLET 150MG (WELLBUTRIN XL) PO SCH ×2 (08:34→20:14)
[2017-07-16] MEDS ORDERED: LOVE0.6I2 SC (10:40)
[2017-07-16] MEDS: PERCOCET 5MG/325MG TAB PO PRN ×2 (11:18→20:14)
[2017-07-16 12:00] VITALS: BP 142/77
[2017-07-16 16:00] VITALS: BP 145/72
[2017-07-16] MEDS: ONDANSETRON 4MG/2ML VIAL (J2405) IV PRN (16:42)
--- NOTE | 2017-07-16 20:54 | IPN ---
DATE: 07/16/2017 Patient seen and examined. Continues to report shorter pain. Denies any significant chest pain, palpitations, shortness of breath. Currently comfortable, reporting mild weakness. Counseling provided at bed side regarding compliance to Lovenox and Lovenox teaching also provided. VITAL SIGNS: Temperature 97.4, pulse 87, respirations 20, blood pressure 145/72, pulse ox 98% on room air. LABORATORY DATA: WBC 4.5, H H 10.7/31.7. Platelets 180. Chemistry: Sodium 141, potassium 3.7, chloride 106, bicarbonate 27, BUN 9, creatinine 0.88. PHYSICAL EXAMINATION: GENERAL: Patient alert and oriented times three in no acute distress. HEENT: Normocephalic, atraumatic. PULMONARY: Bilaterally clear to auscultation. CARDIAC: Regular rate and rhythm. Normal S1, S2. ABDOMEN: Soft, non-tender. Ostomy in place. EXTREMITIES: No clubbing, cyanosis or edema. ASSESSMENT AND PLAN: This is a 47-year-old male patient with underlying medical history of anxiety, depression, chronic iron deficiency anemia found to have a cecal mass on colonoscopy. EGD was negative January 2017. Pathology shows moderate differentiated adenocarcinoma of the colon. Patient is currently ongoing chemotherapy status post right hemicolectomy complicated with abscess and draining the abdomen, currently has a colostomy. Complete FOLFOX and 5-FOLLOWUP with Dr. Vela in [place] with plans of 12 cycles of chemotherapy presented with complaints of shooting sharp pain right shoulder to the back. Found to have extensive filling and right-sided pulmonary embolism (PE). PROBLEM: 1. Pulmonary embolism (PE). CT angio appreciated. Lovenox teaching has been provided. drug worker consulted for prior authorization for Lovenox given patient with underlying cancer with active treatment. Patient should be receiving Lovenox versus alternative agent. Counseling provided. Patient currently has not demonstrated that he is able to do injections. Subsequently patient's discharge is delayed for one more day for Lovenox teaching and patient reported that he will attempt to learn and try to give himself Lovenox later tonight. 2. Bilateral hilar adenopathy. Likely reactive to chemo radiation. Need outpatient follow up. 3. Hypokalemia resolved. 4. Colon cancer status post hemicolectomy with ostomy on chemotherapy. Follow up as outpatient. 5. Iron deficiency anemia. Continue supplementations. 6. Deep vein thrombosis prophylaxis. Patient on Lovenox for treatment of pulmonary embolism (PE). DISPOSITION: Pending patient demonstration of ability to administer Lovenox as outpatient likely discharge in next 24 hours.
[2017-07-16 21:09] VITALS: BP 123/74
[2017-07-17 00:56] VITALS: BP 121/70
[2017-07-17 05:21] VITALS: BP 114/71
[2017-07-17 05:56] LABS: BASO % 0.6 % (0.0-1.0); EOS # 0.1 K/mm3 (0.0-0.50); EOS % 3.7 % (0.0-3.0); LARGE UNSTAINED CELL # 0.1 K/mm3 (0.0-0.4); LARGE UNSTAINED CELL % 3.5 % (0.0-4.0); LYMPH # 1.2 K/mm3 (1.5-4.5); LYMPH % 34.4 % (24.0-44.0); MEAN CORPUSCULAR HEMOGLOBIN 25.9 pg (27.0-33.0); MEAN CORPUSCULAR HGB CONC 33.7 g/dl (32.0-36.5); MEAN CORPUSCULAR VOLUME 76.9 fl (80.0-96.0); MONO # 0.3 K/mm3 (0.0-0.8); NEUTROPHILS # 1.8 K/mm3 (1.8-7.7); NEUTROPHILS % 50.8 % (36.0-66.0); PLATELET COUNT, AUTOMATED 182 k/mm3 (150-450); RED CELL DISTRIBUTION WIDTH 18.8 % (11.5-14.5); WHITE BLOOD COUNT 3.6 K/mm3 (4.0-10.0)
[2017-07-17 05:58] LABS: INR 0.99
[2017-07-17 06:08] LABS: ANION GAP 7 MEQ/L (8-16); BLOOD UREA NITROGEN 10 MG/DL (7-18); CALCIUM LEVEL 7.8 MG/DL (8.5-10.1); CARBON DIOXIDE LEVEL 28 MEQ/L (21-32); CHLORIDE LEVEL 107 MEQ/L (98-107); CREATININE FOR GFR 0.97 MG/DL (0.70-1.30); GLOMERULAR FILTRATION RATE > 60.0 (>60); GLUCOSE, FASTING 109 MG/DL (70-105); POTASSIUM SERUM 3.8 MEQ/L (3.5-5.1); SODIUM LEVEL 142 MEQ/L (136-145)
[2017-07-17] MEDS: ENOXAPARIN 100MG/1ML SYRINGE (J1650) SC SCH (06:37)
[2017-07-17] MEDS: SLF 3 ML SYR IV SCH (06:37)
[2017-07-17 08:00] VITALS: BP 116/68
[2017-07-17] MEDS: PANTOPRAZOLE 40MG TAB (PROTONIX) PO SCH (08:30)
[2017-07-17] MEDS: buPROPion **XL** TABLET 150MG (WELLBUTRIN XL) PO SCH (08:30)
--- NOTE | 2017-07-19 12:58 | DSES ---
DATE OF ADMISSION: 07/13/2017 DATE OF DISCHARGE: 07/17/2017 FINAL DIAGNOSES: 1. Pulmonary embolism. 2. Bilateral hilar adenopathy. 3. Hypokalemia. 4. Colon cancer status post hemicolectomy with ostomy, on chemotherapy. 5. Iron deficiency anemia. PRIMARY CARE PROVIDER: Dr. Lydia Lomas GENERAL SURGEON: Dr. Gamaliel Quintero, oncologist in [place] HISTORY OF PRESENT ILLNESS: This is a 47-year-old male patient with underlying medical history of adenocarcinoma of the colon diagnosed by colonoscopy January 2017. Had workup chronic iron deficiency anemia, chronic fatigue, near syncope episode, status post fourth cycle of chemotherapy. Last was done on Saturday prior to admission, on FOLFOX with 5FU by Dr. Marie in [place] with plans for 12 cycles of chemotherapy. Presented to the emergency room with several days of right-sided chest pain and shoulder pain radiating to the back between the ribs, sharp, shooting pain and persistent associated with shortness of breath without diaphoresis, palpitations, lightheadedness. Patient described the pain as worse with expiration. Unable to sleep flat on the bed and has to be sitting up. In the emergency department (ED) patient with CT scan of the chest was done, showing pulmonary embolism (PE), right sided. Patient was initially started on heparin drip. HOSPITAL COURSE: Patient was admitted. Initially on heparin drip. Later switched to Lovenox. Patient and family services (PFS) was consulted for prior authorization for Lovenox. Case was discussed with pharmacy. Lovenox dosage was adjusted, given patient does not want to be administered Lovenox twice a day. Compliance was encouraged. Lovenox teaching was provided. Patient currently is able to administer Lovenox on his own. Has demonstrated on two separate occasions to the nursing staff. Subsequently, patient with improvement of patient's pain. Patient currently is tolerating oral, ready for discharge for further care as outpatient. Followup with patient's oncologist. VITAL SIGNS: Temperature 96.9, pulse 83, respirations 20, blood pressure 116/86, pulse oximetry 98% on room air. GENERAL: Patient alert and oriented times three in no acute distress. HEENT: Normocephalic, atraumatic. PULMONARY: Bilaterally clear. CARDIAC: Regular rate and rhythm. Normal S1, S2. ABDOMEN: Colostomy in place. Nontender. Positive bowel sounds. EXTREMITIES: No clubbing, cyanosis, or edema. LABORATORY DATA: WBC 3.6, hemoglobin and hematocrit 11.1/33.1, platelets 182. Chemistry: Sodium 142, potassium 3.8, chloride 107, bicarbonate 28, BUN 10, creatinine 0.97. DISCHARGE MEDICATIONS: - Lovenox 140 mg subcutaneous daily - acetaminophen 650 mg by mouth every 6 hours as needed - bupropion 150 mg by mouth twice a day - Imodium 2 mg by mouth every 4 hours as needed - Zofran 8 mg by mouth every 8 hours as needed DISCHARGE INSTRUCTIONS: Patient is instructed to followup with oncologist in 1-2 weeks, primary care provider in 10 days. Return to the hospital if symptoms worsen. ADDENDUM: 07/17/2017 Estimated time spent arranging discharge and counseling patient was 40 minutes.
== END 2017-07-17 13:21 | disposition home or self-care (01) | DRG 134 ==
LOC: M ED 16:33 → M ED INP 20:05 → M PCU 23:29
PROVIDERS: ADMIT General Practice; ATTEND Internal Medicine
DX: I26.99 Other pulmonary embolism without acute cor pulmonale (principal); C18.9 Malignant neoplasm of colon, unspecified; E87.6 Hypokalemia; D50.9 Iron deficiency anemia, unspecified; F32.9 Major depressive disorder, single episode, unspecified; K44.9 Diaphragmatic hernia without obstruction or gangrene; Z88.8 Allergy status to other drugs, medicaments and biological substances; Z93.3 Colostomy status; F41.9 Anxiety disorder, unspecified; Z79.899 Other long term (current) drug therapy

== ENCOUNTER → 2017-07-17 | Outpatient (REF) | payer BC ==
[~2017-07-17] MED LIST changes: +BUPR150T3 PO; +BUPR15TASR PO; +IMOD2TAB16 PO; +LOVE0.6I2 SC; +ONDA8TAB7 PO; +TYLE325T5 PO
== END ==
LOC: M LAB REF 05:14
PROVIDERS: ATTEND Internal Medicine Hematology & Oncology
DX: C18.9 Malignant neoplasm of colon, unspecified (principal)

== ENCOUNTER 2018-01-09 16:03 | Emergency (ER) | payer BC, MEDICAID ==
[2018-01-09 18:23] LABS: ANION GAP 9 MEQ/L (8-16); BLOOD UREA NITROGEN 17 MG/DL (7-18); CARBON DIOXIDE LEVEL 25 MEQ/L (21-32); CHLORIDE LEVEL 109 MEQ/L (98-107); CPK CREATINE PHOSPHOKINASE 184 U/L (39-308); GLOMERULAR FILTRATION RATE > 60.0 (>60); GLUCOSE, FASTING 102 MG/DL (70-100); MB/CK RELATIVE INDEX 0.54 (< OR =4); POTASSIUM SERUM 5.1 MEQ/L (3.5-5.1); SODIUM LEVEL 143 MEQ/L (136-145); TROPONIN I < 0.02 NG/ML (< 0.10)
[2018-01-09] MEDS ORDERED: ISOVUE-370 76% 100ML VIAL (Q9967) As Ordered (18:35)
== END 2018-01-09 20:35 | disposition home or self-care (01) ==
LOC: M ED 16:03
DX: R07.89 Other chest pain (principal); M25.519 Pain in unspecified shoulder; Z86.711 Personal history of pulmonary embolism; Z85.038 Personal history of other malignant neoplasm of large intestine; Z87.39 Personal history of other diseases of the musculoskeletal system and connective tissue; Z88.1 Allergy status to other antibiotic agents
CPT/HCPCS: Q9967

== ENCOUNTER → 2018-01-24 | Outpatient (CLI) | payer BC, MEDICAID ==
[~2018-01-24] MED LIST changes: -BUPR150T3 PO; -BUPR15TASR PO; +GASTROGRAFIN SOLUTION 30ML (Q9963) As Ordered; -IMOD2TAB16 PO; -IRON65TA PO; +ISOVUE-370 76% 100ML VIAL (Q9967) As Ordered; -LOVE0.6I2 SC; -ONDA8TAB7 PO; -RANI15TA PO; -TYLE325T5 PO
== END ==
LOC: M RAD 16:16
DX: K43.9 Ventral hernia without obstruction or gangrene (principal); K76.0 Fatty (change of) liver, not elsewhere classified; Z90.49 Acquired absence of other specified parts of digestive tract; Z93.2 Ileostomy status; K63.2 Fistula of intestine

== ENCOUNTER → 2018-03-14 | Outpatient (CLI) | payer BC, MEDICAID | LOC: M RAD 14:12 | DX: C18.2 Malignant neoplasm of ascending colon (principal); G62.0 Drug-induced polyneuropathy | CPT/HCPCS: Q9963 ==

== ENCOUNTER → 2018-03-18 | Outpatient (CLI) | payer BC, MEDICAID ==
[2018-03-18 15:10] LABS: BASO % 0.6 % (0.0-1.0); EOS # 0.2 10^3/uL (0.0-0.50); EOS % 3.4 % (0.0-3.0); HEMATOCRIT 41.1 % (42.0-52.0); HEMOGLOBIN 13.5 g/dl (13.5-17.5); IMMATURE GRANULOCYTE # 0.1 10^3/uL (0-0); IMMATURE GRANULOCYTE % 1.5 % (0-3.0); LYMPH # 1.6 10^3/uL (1.5-4.5); LYMPH % 23.6 % (24.0-44.0); MEAN CORPUSCULAR HGB CONC 32.8 g/dl (32.0-36.5); MEAN CORPUSCULAR VOLUME 88.4 fl (80.0-96.0); MONO # 0.6 10^3/uL (0.0-0.8); MONO % 8.8 % (0.0-5.0); NEUTROPHILS # 4.2 10^3/uL (1.8-7.7); NEUTROPHILS % 62.1 % (36.0-66.0); PLATELET COUNT, AUTOMATED 205 10^3/uL (150-450); RED BLOOD COUNT 4.65 10^6/uL (4.30-6.10); RED CELL DISTRIBUTION WIDTH 13.7 % (11.5-14.5); WHITE BLOOD COUNT 6.7 10^3/uL (4.0-10.0)
[2018-03-18 15:25] LABS: ALBUMIN 3.6 GM/DL (3.2-5.2); ALBUMIN/GLOBULIN RATIO 0.88 (1.00-1.93); ALKALINE PHOSPHATASE 88 U/L (45-117); ALT/SGPT 36 U/L (12-78); ANION GAP 5 MEQ/L (8-16); APPEARANCE, URINE HAZY (CLEAR); AST/SGOT 20 U/L (7-37); BACTERIA, URINE AUTO NEGATIVE (NEGATIVE); BILIRUBIN, URINE AUTO NEGATIVE (NEGATIVE); BILIRUBIN,TOTAL 0.3 MG/DL (0.2-1.0); BLOOD UREA NITROGEN 14 MG/DL (7-18); BLOOD, URINE BLOOD NEGATIVE (NEGATIVE); CALCIUM LEVEL 9.1 MG/DL (8.5-10.1); CARBON DIOXIDE LEVEL 28 MEQ/L (21-32); CHLORIDE LEVEL 108 MEQ/L (98-107); COLOR, URINE YELLOW (YELLOW); CREATININE FOR GFR 0.92 MG/DL (0.70-1.30); FERRITIN 97 NG/ML (26-388); GLOMERULAR FILTRATION RATE > 60.0 (>60); GLUCOSE, FASTING 116 MG/DL (70-100); GLUCOSE, URINE (UA) AUTO NEGATIVE (NEGATIVE); IRON (FE) 60 UG/DL (65-175); KETONE, URINE AUTO NEGATIVE (NEGATIVE); LEUKOCYTE ESTERASE, URINE AUTO NEGATIVE (NEGATIVE); MUCUS, URINE SMALL (NEGATIVE); NITRITE, URINE AUTO NEGATIVE (NEGATIVE); PERCENT SATURATION 20.3 % (19.7-50.0); POTASSIUM SERUM 4.3 MEQ/L (3.5-5.1); PROTEIN, URINE AUTO NEGATIVE (NEGATIVE); RBC, URINE AUTO 1 /HPF (0-3); SODIUM LEVEL 141 MEQ/L (136-145); SPECIFIC GRAVITY URINE AUTO 1.018 (1.002-1.035); SQUAMOUS EPITHELIAL CELL UR AU 0 /HPF (0-6); TOTAL IRON BINDING CAPACITY 295 UG/DL (250-450); TOTAL PROTEIN 7.7 GM/DL (6.4-8.2); UROBILINOGEN, URINE AUTO 0.2 mg/dL (0.0-2.0); WBC, URINE AUTO 1 /HPF (0-3)
== END ==
LOC: M LAB 14:26
DX: G62.0 Drug-induced polyneuropathy (principal); C18.2 Malignant neoplasm of ascending colon
CPT/HCPCS: 83550

== ENCOUNTER → 2018-05-29 | Outpatient (CLI) | payer BC, MEDICAID ==
[2018-05-29 14:29] LABS: TESTOSTERONE 357 NG/DL (241-827)
[2018-05-29 14:29] LABS: PROLACTIN 5.9 NG/ML (2.1-17.7)
[2018-05-29 14:30] LABS: ESTRADIOL 75.1 PG/ML (<39.8); FOLLICLE STIMULATING HORMONE 3.9 mIU/mL (1.4-18.1); LUTEINIZING HORMONE 3.6 mIU/mL (1.5-9.3)
[2018-05-30 08:48] LABS: SEX HORMONE BINDING GLOBULIN 21.2 nmol/L (16.5-55.9)
== END ==
LOC: M LAB 12:58
DX: E29.1 Testicular hypofunction (principal)
CPT/HCPCS: 83001

== ENCOUNTER → 2018-06-11 | Outpatient (CLI) | payer BC, MEDICAID | LOC: M RAD 12:59 | DX: C18.9 Malignant neoplasm of colon, unspecified (principal) | CPT/HCPCS: Q9963 ==

== ENCOUNTER → 2018-07-01 | Outpatient (CLI) | payer BC, MEDICAID ==
[~2018-07-01] MED LIST changes: +ACETAMINOPHEN 325 MG TAB As Ordered; -GASTROGRAFIN SOLUTION 30ML (Q9963) As Ordered; -ISOVUE-370 76% 100ML VIAL (Q9967) As Ordered; +LIDOCAINE 1% MDV 20ML VIAL As Ordered
== END ==
LOC: M RADPRO 12:55
DX: C49.4 Malignant neoplasm of connective and soft tissue of abdomen (principal); Z85.038 Personal history of other malignant neoplasm of large intestine
CPT/HCPCS: 49180

== ENCOUNTER → 2019-01-01 | Outpatient (CLI) | payer BC, MEDICAID ==
[~2019-01-01] MED LIST changes: -ACETAMINOPHEN 325 MG TAB As Ordered; +BUPR150T3 PO; +BUPR15TASR PO; +IMOD2TAB16 PO; +IRON65TA PO; -LIDOCAINE 1% MDV 20ML VIAL As Ordered; +LOVE0.6I2 SC; +MOTR200T44 PO; +ONDA8TAB7 PO; +RANI15TA PO; +ROBA500T PO; +TYLE325T5 PO
[2019-01-02 13:46] LABS: ALBUMIN 2.9 GM/DL (3.2-5.2); ALT/SGPT 98 U/L (12-78); BILIRUBIN,TOTAL 1.5 MG/DL (0.2-1.0); BLOOD UREA NITROGEN 17 MG/DL (7-18); CALCIUM LEVEL 5.8 MG/DL (8.5-10.1); CARBON DIOXIDE LEVEL 30 MEQ/L (21-32); CHLORIDE LEVEL 94 MEQ/L (98-107); CREATININE FOR GFR 1.12 MG/DL (0.70-1.30); GLOMERULAR FILTRATION RATE > 60.0 (>60); GLUCOSE, FASTING 240 MG/DL (70-100); POTASSIUM SERUM 4.7 MEQ/L (3.5-5.1); SODIUM LEVEL 129 MEQ/L (136-145); TOTAL PROTEIN 6.4 GM/DL (6.4-8.2)
[2019-01-02 13:56] LABS: RED BLOOD COUNT 4.69 10^6/uL (4.30-6.10)
[2019-01-02 13:57] LABS: HEMATOCRIT 42.9 % (42.0-52.0); MEAN CORPUSCULAR HEMOGLOBIN 29.9 pg (27.0-33.0); MEAN CORPUSCULAR HGB CONC 34.2 g/dl (32.0-36.5); MEAN CORPUSCULAR VOLUME 87.2 fl (80.0-96.0); PLATELET COUNT, AUTOMATED 259 10^3/uL (150-450)
[2019-01-02 13:58] LABS: WHITE BLOOD COUNT 7.7 10^3/uL (4.0-10.0)
== END ==
LOC: M LRY 14:29
PROVIDERS: ATTEND Internal Medicine Hematology & Oncology
DX: Z79.899 Other long term (current) drug therapy (principal)

== ENCOUNTER → 2019-01-14 | Outpatient (CLI) | payer BC, MEDICAID ==
[2019-01-14 17:30] LABS: BASO % 0.4 % (0.0-1.0); EOS # 0.2 10^3/uL (0.0-0.50); EOS % 3.4 % (0.0-3.0); HEMATOCRIT 36.6 % (42.0-52.0); HEMOGLOBIN 12.7 g/dl (13.5-17.5); LYMPH # 1.3 10^3/uL (1.5-4.5); LYMPH % 23.1 % (24.0-44.0); MEAN CORPUSCULAR HGB CONC 34.7 g/dl (32.0-36.5); MEAN CORPUSCULAR VOLUME 89.3 fl (80.0-96.0); MONO # 0.6 10^3/uL (0.0-0.8); MONO % 11.3 % (0.0-5.0); NEUTROPHILS # 3.4 10^3/uL (1.8-7.7); PLATELET COUNT, AUTOMATED 200 10^3/uL (150-450); WHITE BLOOD COUNT 5.6 10^3/uL (4.0-10.0)
[2019-01-14 18:26] LABS: ALT/SGPT 34 U/L (12-78); BILIRUBIN,TOTAL 0.6 MG/DL (0.2-1.0); BLOOD UREA NITROGEN 17 MG/DL (7-18); CALCIUM LEVEL 7.2 MG/DL (8.5-10.1); CARBON DIOXIDE LEVEL 27 MEQ/L (21-32); CHLORIDE LEVEL 100 MEQ/L (98-107); CREATININE FOR GFR 0.87 MG/DL (0.70-1.30); GLOMERULAR FILTRATION RATE > 60.0 (>60); GLUCOSE, FASTING 154 MG/DL (70-100); POTASSIUM SERUM 4.1 MEQ/L (3.5-5.1); SODIUM LEVEL 134 MEQ/L (136-145); TOTAL PROTEIN 6.1 GM/DL (6.4-8.2)
== END ==
LOC: M LRY 12:42
PROVIDERS: ATTEND Internal Medicine Hematology & Oncology
DX: Z51.81 Encounter for therapeutic drug level monitoring (principal); Z79.899 Other long term (current) drug therapy; C16.2 Malignant neoplasm of body of stomach; G62.0 Drug-induced polyneuropathy

== ENCOUNTER → 2019-01-29 | Outpatient (CLI) | payer BC, MEDICAID ==
[2019-01-29 20:44] LABS: BASO % 0.6 % (0.0-1.0); EOS # 0.1 10^3/uL (0.0-0.50); EOS % 1.2 % (0.0-3.0); HEMATOCRIT 35.6 % (42.0-52.0); HEMOGLOBIN 12.1 g/dl (13.5-17.5); LYMPH # 1.3 10^3/uL (1.5-4.5); LYMPH % 25.1 % (24.0-44.0); MEAN CORPUSCULAR HEMOGLOBIN 29.2 pg (27.0-33.0); MONO # 0.7 10^3/uL (0.0-0.8); MONO % 13.4 % (0.0-5.0); NEUTROPHILS # 2.9 10^3/uL (1.8-7.7); NEUTROPHILS % 57.3 % (36.0-66.0); PLATELET COUNT, AUTOMATED 202 10^3/uL (150-450); RED BLOOD COUNT 4.14 10^6/uL (4.30-6.10)
[2019-01-29 22:01] LABS: ALBUMIN 3.3 GM/DL (3.2-5.2); ALT/SGPT 46 U/L (12-78); BILIRUBIN,TOTAL 0.4 MG/DL (0.2-1.0); BLOOD UREA NITROGEN 13 MG/DL (7-18); CALCIUM LEVEL 7.7 MG/DL (8.5-10.1); CARBON DIOXIDE LEVEL 21 MEQ/L (21-32); CHLORIDE LEVEL 107 MEQ/L (98-107); GLOMERULAR FILTRATION RATE > 60.0 (>60); GLUCOSE, FASTING 138 MG/DL (70-100); POTASSIUM SERUM 3.5 MEQ/L (3.5-5.1); SODIUM LEVEL 138 MEQ/L (136-145); TOTAL PROTEIN 6.4 GM/DL (6.4-8.2)
== END ==
LOC: M LRY 16:05
PROVIDERS: ATTEND Internal Medicine Hematology & Oncology
DX: C18.2 Malignant neoplasm of ascending colon (principal); G62.0 Drug-induced polyneuropathy; Z79.899 Other long term (current) drug therapy

== ENCOUNTER 2019-02-10 06:31 | Day surgery (SDC) | payer BC, MEDICAID ==
[~2019-02-10] VITALS: Ht 182.9 cm; Wt 102.1 kg
[~2019-02-10 06:31] MED LIST changes: +ESCI10TA2 PO; +GABA-843 PO; +NS 1,000 ML IV ONE; +OMEP20TA PO
[2019-02-10] MEDS ORDERED: PROPOFOL 500 MG/50 ML VIAL As Ordered ONE ×2 (07:38→08:27)
[2019-02-10] MEDS ORDERED: LIDOCAINE 2% INJ 100 MG/5 ML SDV (FOR ANES.) As Ordered ONE (07:38)
--- NOTE | 2019-02-10 08:04 | ROOR ---
Patient Name: Star Rosenbaum Procedure Date: 02/10/2019 7:36 AM Date of : 1970 Age: 49 Room: [facility] Gender: Male Note Status: Finalized Procedure: Colonoscopy Indications: Hematochezia Providers: Russ DENNIS MD Referring MD: Lydia Lomas DO, Alka Srivastava Requesting Provider: Medicines: Monitored Anesthesia Care Complications: No immediate complications. Procedure: Pre-Anesthesia Assessment: - The heart rate, respiratory rate, oxygen saturations, blood pressure, adequacy of pulmonary ventilation, and response to care were monitored throughout the procedure. The Colonoscope was introduced through the anus and advanced to the ileocolonic anastomosis. The colonoscopy was performed without difficulty. The patient tolerated the procedure well. The quality of the bowel preparation was good. Findings: The perianal and digital rectal examinations were normal. There was evidence of a prior end-to-side ileo-colonic anastomosis in the mid transverse colon. This was patent and was characterized by friable mucosa, moderate stenosis, ulceration and an intact staple line. The anastomosis was traversed. This was biopsied with a cold forceps for histology. Internal hemorrhoids were found during retroflexion. The hemorrhoids were moderate. The exam was otherwise without abnormality on direct and retroflexion views. Impression: - Patent but stenosed end-to-side ileo-colonic anastomosis, characterized by friable mucosa, shallow erosion/ulceration, moderate stenosis and an intact staple line. Biopsied. - The anastomotic stenosis is passable with the pediatric colonoscope and the neoterminal ileum is normal in appearance for 10-15 cm. - Internal hemorrhoids. - The examination was otherwise normal on direct and retroflexion views. - (I suspect intermittent minor oozing/bleeding from anastomosis site, however cannot r/o intermittent hemorrhoidal bleeding). - (If deemed appropriate, consideration may be given to revision of the anastomosis--to be discussed) Recommendation: - Use fiber, for example Citrucel, Fibercon, Konsyl or Metamucil. - Miralax 1 capful (17 grams) in 8 ounces of water PO daily. - Use Pentasa 1 gram PO QID. - (the script was sent to your pharmacy on file). Russ Dennis MD Russ DENNIS MD 02/10/2019 8:03:57 AM This report has been signed electronically. Number of Addenda: 0 Note Initiated On: 02/10/2019 7:36 AM Estimated Blood Loss: Estimated blood loss: none.
[2019-02-10 08:15] VITALS: BP 133/75
== END 2019-02-10 08:24 | disposition home or self-care (01) ==
LOC: M OPP 06:31
PROVIDERS: ATTEND Internal Medicine Gastroenterology
DX: K92.1 Melena (principal); K64.8 Other hemorrhoids; Z98.0 Intestinal bypass and anastomosis status

== ENCOUNTER → 2019-02-11 | Outpatient (CLI) | payer BC, MEDICAID ==
[~2019-02-11] MED LIST changes: -NS 1,000 ML IV ONE
[2019-02-11 20:24] LABS: BASO % 0.8 % (0.0-1.0); EOS # 0.1 10^3/uL (0.0-0.50); EOS % 2.7 % (0.0-3.0); HEMATOCRIT 35.2 % (42.0-52.0); HEMOGLOBIN 12.1 g/dl (13.5-17.5); LYMPH # 1.3 10^3/uL (1.5-4.5); LYMPH % 24.4 % (24.0-44.0); MEAN CORPUSCULAR HEMOGLOBIN 29.2 pg (27.0-33.0); MEAN CORPUSCULAR HGB CONC 34.4 g/dl (32.0-36.5); MEAN CORPUSCULAR VOLUME 84.8 fl (80.0-96.0); MONO # 0.4 10^3/uL (0.0-0.8); MONO % 8.6 % (0.0-5.0); NEUTROPHILS % 58.6 % (36.0-66.0); PLATELET COUNT, AUTOMATED 189 10^3/uL (150-450); RED BLOOD COUNT 4.15 10^6/uL (4.30-6.10); WHITE BLOOD COUNT 5.1 10^3/uL (4.0-10.0)
[2019-02-11 20:36] LABS: ALBUMIN 3.3 GM/DL (3.2-5.2); ALT/SGPT 46 U/L (12-78); BILIRUBIN,TOTAL 0.3 MG/DL (0.2-1.0); BLOOD UREA NITROGEN 22 MG/DL (7-18); CALCIUM LEVEL 7.6 MG/DL (8.5-10.1); CARBON DIOXIDE LEVEL 22 MEQ/L (21-32); CHLORIDE LEVEL 106 MEQ/L (98-107); CREATININE FOR GFR 1.18 MG/DL (0.70-1.30); GLOMERULAR FILTRATION RATE > 60.0 (>60); GLUCOSE, FASTING 142 MG/DL (70-100); POTASSIUM SERUM 3.7 MEQ/L (3.5-5.1); SODIUM LEVEL 140 MEQ/L (136-145); TOTAL PROTEIN 6.3 GM/DL (6.4-8.2)
== END ==
LOC: M LRY 16:37
PROVIDERS: ATTEND Internal Medicine Hematology & Oncology
DX: Z79.899 Other long term (current) drug therapy (principal)

== ENCOUNTER → 2019-02-24 | Outpatient (CLI) | payer BC, MEDICAID ==
[2019-02-24 20:42] LABS: BASO % 0.4 % (0.0-1.0); EOS # 0.2 10^3/uL (0.0-0.50); EOS % 3.7 % (0.0-3.0); LYMPH # 1.6 10^3/uL (1.5-4.5); LYMPH % 28.5 % (24.0-44.0); MONO # 0.4 10^3/uL (0.0-0.8); MONO % 7.1 % (0.0-5.0); NEUTROPHILS # 3.1 10^3/uL (1.8-7.7); NEUTROPHILS % 55.9 % (36.0-66.0); PLATELET COUNT, AUTOMATED 242 10^3/uL (150-450); WHITE BLOOD COUNT 5.5 10^3/uL (4.0-10.0)
[2019-02-24 21:20] LABS: HEMATOCRIT 35.4 % (42.0-52.0); HEMOGLOBIN 11.8 g/dl (13.5-17.5); MEAN CORPUSCULAR HEMOGLOBIN 27.6 pg (27.0-33.0); MEAN CORPUSCULAR HGB CONC 33.3 g/dl (32.0-36.5); MEAN CORPUSCULAR VOLUME 82.7 fl (80.0-96.0); RED BLOOD COUNT 4.28 10^6/uL (4.30-6.10)
[2019-02-24 21:52] LABS: ALBUMIN 3.4 GM/DL (3.2-5.2); ALT/SGPT 40 U/L (12-78); BILIRUBIN,TOTAL 0.4 MG/DL (0.2-1.0); BLOOD UREA NITROGEN 30 MG/DL (7-18); CALCIUM LEVEL 7.9 MG/DL (8.5-10.1); CARBON DIOXIDE LEVEL 23 MEQ/L (21-32); CHLORIDE LEVEL 103 MEQ/L (98-107); CREATININE FOR GFR 1.18 MG/DL (0.70-1.30); GLOMERULAR FILTRATION RATE > 60.0 (>60); GLUCOSE, FASTING 131 MG/DL (70-100); POTASSIUM SERUM 3.8 MEQ/L (3.5-5.1); SODIUM LEVEL 137 MEQ/L (136-145); TOTAL PROTEIN 6.5 GM/DL (6.4-8.2)
== END ==
LOC: M LRY 16:50
PROVIDERS: ATTEND Internal Medicine Hematology & Oncology
DX: C18.2 Malignant neoplasm of ascending colon (principal); G62.0 Drug-induced polyneuropathy; Z79.899 Other long term (current) drug therapy

== ENCOUNTER 2019-03-06 21:25 | Emergency (ER) | payer BC, MEDICAID ==
[~2019-03-06] VITALS: Ht 182.9 cm; Wt 102.3 kg
[2019-03-06] MEDS ORDERED: IMOD2TAB16 PO (21:45)
[2019-03-06] MEDS ORDERED: METOCLOPRAMIDE INJ 10MG/2ML VIAL (J2765) IV ONE (22:15)
[2019-03-06] MEDS ORDERED: NS 1,000 ML IV ONE (22:15)
--- NOTE | 2019-03-06 23:39 | REPVR ---
EXAM: CT Abdomen and Pelvis Without Contrast EXAM DATE/TIME: 03/06/2019 11:01 PM CLINICAL HISTORY: 49 years old, male; Signs and symptoms; Other: Cold/flu symptoms; Additional info: Eval enteral obstruct TECHNIQUE: Imaging protocol: Axial computed tomography images of the abdomen and pelvis without contrast. Coronal and sagittal reformatted images were created and reviewed. Radiation optimization: All CT scans at this facility use at least one of these dose optimization techniques: automated exposure control; mA and/or kV adjustment per patient size (includes targeted exams where dose is matched to clinical indication); or iterative reconstruction. COMPARISON: CT ABD PELVIS WITH CONTRAST 06/11/2018 2:32 PM FINDINGS: Lower thorax: No acute findings. ABDOMEN: Liver: There is a diffuse decrease in hepatic parenchymal density, consistent with fatty infiltration. Gallbladder and bile ducts: Normal. No calcified stones. No ductal dilation. Pancreas: Normal. No ductal dilation. Spleen: Normal. No splenomegaly. Adrenals: Normal. No mass. Kidneys and ureters: Normal. No hydronephrosis. Stomach and bowel: Status post right hemicolectomy. Normal appearance of the anastomosis. Small bowel sutures in the lower abdomen to the right of midline. Ahaustral appearance of the colon may be related to chronic colitis. No acute inflammation demonstrated. No small bowel obstruction. Appendix: No evidence of appendicitis. PELVIS: Bladder: Unremarkable as visualized. Reproductive: The prostate gland demonstrates mild hyperplasia. ABDOMEN and PELVIS: Intraperitoneal space: Normal. No free air. No significant fluid collection. Bones/joints: No acute fracture. No dislocation. Soft tissues: Previously demonstrated soft tissue nodule in right lower quadrant no longer present. Small right inguinal hernia. Vasculature: Normal. No abdominal aortic aneurysm. Lymph nodes: Normal. No enlarged lymph nodes. IMPRESSION: 1. There is a diffuse decrease in hepatic parenchymal density, consistent with fatty infiltration. 2. Status post right hemicolectomy. Normal appearance of the anastomosis. 3. Previously demonstrated soft tissue nodule in right lower quadrant no longer present. 4. Ahaustral appearance of the colon may be related to chronic colitis. No acute inflammation demonstrated. 5. Mild prostatic hyperplasia. Electronically signed by: Heriberto Tellez On 03/06/2019 23:38:40 PM
[2019-03-07 00:21] LABS: BASO % 0.3 % (0.0-1.0); EOS % 0.6 % (0.0-3.0); HEMATOCRIT 41.7 % (42.0-52.0); HEMOGLOBIN 13.7 g/dl (13.5-17.5); LYMPH # 0.6 10^3/uL (1.5-4.5); LYMPH % 8.9 % (24.0-44.0); MEAN CORPUSCULAR HEMOGLOBIN 27.2 pg (27.0-33.0); MEAN CORPUSCULAR HGB CONC 32.9 g/dl (32.0-36.5); MEAN CORPUSCULAR VOLUME 82.7 fl (80.0-96.0); MONO # 0.2 10^3/uL (0.0-0.8); MONO % 3.2 % (0.0-5.0); NEUTROPHILS # 5.4 10^3/uL (1.8-7.7); NEUTROPHILS % 85.6 % (36.0-66.0); PLATELET COUNT, AUTOMATED 155 10^3/uL (150-450); RED BLOOD COUNT 5.04 10^6/uL (4.30-6.10); WHITE BLOOD COUNT 6.3 10^3/uL (4.0-10.0)
[2019-03-07 00:45] LABS: ALBUMIN 3.6 GM/DL (3.2-5.2); BILIRUBIN,DIRECT 0.3 MG/DL (0.0-0.2); CALCIUM LEVEL 8.5 MG/DL (8.5-10.1); CREATININE FOR GFR 1.49 MG/DL (0.70-1.30); GLOMERULAR FILTRATION RATE 53.8 (>60); POTASSIUM SERUM 3.5 MEQ/L (3.5-5.1); TOTAL PROTEIN 6.7 GM/DL (6.4-8.2)
[2019-03-07 00:53] LABS: INFLUENZA A AMPLIFICATION NEGATIVE (NEGATIVE); INFLUENZA B AMPLIFICATION NEGATIVE (NEGATIVE)
[2019-03-07] MEDS ORDERED: NS 1,000 ML IV ONE (01:15)
[2019-03-07] MEDS ORDERED: REGL10TA6 PO (02:58)
[2019-03-07 03:00] VITALS: BP 130/83
--- NOTE | 2019-03-07 08:35 | REP ---
Clinical: Nausea and vomiting. Technique: PA and lateral. Comparison: 07/13/2017. Findings: Mild cardiomegaly is suggested. [id number] with tip in the SVC/right atrium unchanged. Lung oconnell demonstrate mild chronic-appearing basilar changes without acute consolidation, effusion, or pneumothorax. Skeletal structures are intact. Impression: Chronic changes. No acute cardiopulmonary process or focal consolidation. Electronically Signed by Joon Peñaloza MD 03/07/2019 08:26 A
== END 2019-03-07 03:20 | disposition home or self-care (01) ==
LOC: M ED 21:25
DX: K52.9 Noninfective gastroenteritis and colitis, unspecified (principal); E86.0 Dehydration; Z90.49 Acquired absence of other specified parts of digestive tract; Z88.8 Allergy status to other drugs, medicaments and biological substances; Z85.038 Personal history of other malignant neoplasm of large intestine
CPT/HCPCS: 36415; 71046; 74176; 80048; 80076; 83605; 83690; 85025; 87040; 87502; 96374; 96375; 99284; J2765

== ENCOUNTER → 2019-04-08 | Outpatient (CLI) | payer BC, MEDICAID ==
[~2019-04-08] MED LIST changes: +REGL10TA6 PO
[2019-04-08 17:08] LABS: ALBUMIN 3.4 GM/DL (3.2-5.2); ALT/SGPT 41 U/L (12-78); BILIRUBIN,TOTAL 0.4 MG/DL (0.2-1.0); BLOOD UREA NITROGEN 17 MG/DL (7-18); CARBON DIOXIDE LEVEL 26 MEQ/L (21-32); CHLORIDE LEVEL 105 MEQ/L (98-107); CREATININE FOR GFR 0.93 MG/DL (0.70-1.30); GLOMERULAR FILTRATION RATE > 60.0 (>60); GLUCOSE, FASTING 117 MG/DL (70-100); POTASSIUM SERUM 3.9 MEQ/L (3.5-5.1); SODIUM LEVEL 139 MEQ/L (136-145); TOTAL PROTEIN 6.7 GM/DL (6.4-8.2)
[2019-04-08 17:22] LABS: BASO % 0.4 % (0.0-1.0); EOS # 0.2 10^3/uL (0.0-0.50); HEMATOCRIT 36.8 % (42.0-52.0); HEMOGLOBIN 11.8 g/dl (13.5-17.5); LYMPH # 1.8 10^3/uL (1.5-4.5); LYMPH % 23.1 % (24.0-44.0); MEAN CORPUSCULAR HEMOGLOBIN 27.7 pg (27.0-33.0); MEAN CORPUSCULAR HGB CONC 32.1 g/dl (32.0-36.5); MEAN CORPUSCULAR VOLUME 86.4 fl (80.0-96.0); MONO # 0.7 10^3/uL (0.0-0.8); MONO % 8.5 % (0.0-5.0); NEUTROPHILS # 4.8 10^3/uL (1.8-7.7); PLATELET COUNT, AUTOMATED 328 10^3/uL (150-450); RED BLOOD COUNT 4.26 10^6/uL (4.30-6.10); WHITE BLOOD COUNT 7.7 10^3/uL (4.0-10.0)
== END ==
LOC: M LRY 14:46
PROVIDERS: ATTEND Internal Medicine Hematology & Oncology
DX: C18.2 Malignant neoplasm of ascending colon (principal); G62.0 Drug-induced polyneuropathy; Z79.899 Other long term (current) drug therapy

== ENCOUNTER → 2019-05-05 | Outpatient (CLI) | payer BC, MEDICAID ==
[2019-05-05 20:40] LABS: ALBUMIN 3.5 GM/DL (3.2-5.2); ALT/SGPT 33 U/L (12-78); BILIRUBIN,TOTAL 0.4 MG/DL (0.2-1.0); BLOOD UREA NITROGEN 15 MG/DL (7-18); CARBON DIOXIDE LEVEL 25 MEQ/L (21-32); CHLORIDE LEVEL 109 MEQ/L (98-107); CREATININE FOR GFR 1.05 MG/DL (0.70-1.30); GLOMERULAR FILTRATION RATE > 60.0 (>60); GLUCOSE, FASTING 102 MG/DL (70-100); POTASSIUM SERUM 3.6 MEQ/L (3.5-5.1); SODIUM LEVEL 143 MEQ/L (136-145); TOTAL PROTEIN 6.6 GM/DL (6.4-8.2)
[2019-05-05 20:52] LABS: BASO % 0.6 % (0.0-1.0); EOS # 0.1 10^3/uL (0.0-0.50); EOS % 2.5 % (0.0-3.0); HEMATOCRIT 41.5 % (42.0-52.0); LYMPH # 1.4 10^3/uL (1.5-4.5); LYMPH % 26.2 % (24.0-44.0); MEAN CORPUSCULAR HEMOGLOBIN 27.7 pg (27.0-33.0); MEAN CORPUSCULAR HGB CONC 31.3 g/dl (32.0-36.5); MEAN CORPUSCULAR VOLUME 88.5 fl (80.0-96.0); MONO # 0.4 10^3/uL (0.0-0.8); MONO % 7.3 % (0.0-5.0); NEUTROPHILS # 3.3 10^3/uL (1.8-7.7); PLATELET COUNT, AUTOMATED 220 10^3/uL (150-450); RED BLOOD COUNT 4.69 10^6/uL (4.30-6.10); WHITE BLOOD COUNT 5.2 10^3/uL (4.0-10.0)
== END ==
LOC: M LRY 14:58
PROVIDERS: ATTEND Internal Medicine Hematology & Oncology
DX: C18.2 Malignant neoplasm of ascending colon (principal); G62.0 Drug-induced polyneuropathy; Z79.899 Other long term (current) drug therapy

== ENCOUNTER → 2019-05-20 | Outpatient (CLI) | payer BC, MEDICAID ==
[2019-05-20 20:17] LABS: BASO % 0.5 % (0.0-1.0); EOS # 0.1 10^3/uL (0.0-0.50); EOS % 1.9 % (0.0-3.0); HEMATOCRIT 43.5 % (42.0-52.0); HEMOGLOBIN 13.7 g/dl (13.5-17.5); LYMPH # 1.6 10^3/uL (1.5-4.5); LYMPH % 26.3 % (24.0-44.0); MEAN CORPUSCULAR HEMOGLOBIN 27.1 pg (27.0-33.0); MEAN CORPUSCULAR HGB CONC 31.5 g/dl (32.0-36.5); MEAN CORPUSCULAR VOLUME 86.1 fl (80.0-96.0); MONO # 0.7 10^3/uL (0.0-0.8); NEUTROPHILS # 3.5 10^3/uL (1.8-7.7); PLATELET COUNT, AUTOMATED 224 10^3/uL (150-450); RED BLOOD COUNT 5.05 10^6/uL (4.30-6.10); WHITE BLOOD COUNT 5.9 10^3/uL (4.0-10.0)
[2019-05-20 20:29] LABS: ALBUMIN 3.6 GM/DL (3.2-5.2); ALT/SGPT 41 U/L (12-78); BILIRUBIN,TOTAL 0.2 MG/DL (0.2-1.0); BLOOD UREA NITROGEN 14 MG/DL (7-18); CALCIUM LEVEL 9.1 MG/DL (8.5-10.1); CARBON DIOXIDE LEVEL 24 MEQ/L (21-32); CHLORIDE LEVEL 104 MEQ/L (98-107); CREATININE FOR GFR 0.93 MG/DL (0.70-1.30); GLOMERULAR FILTRATION RATE > 60.0 (>60); GLUCOSE, FASTING 88 MG/DL (70-100); POTASSIUM SERUM 3.9 MEQ/L (3.5-5.1); SODIUM LEVEL 140 MEQ/L (136-145)
== END ==
LOC: M LRY 17:55
PROVIDERS: ATTEND Internal Medicine Hematology & Oncology
DX: Z79.899 Other long term (current) drug therapy (principal)

== ENCOUNTER → 2019-06-03 | Outpatient (CLI) | payer BC, MEDICAID ==
[2019-06-03 21:00] LABS: BASO % 0.6 % (0.0-1.0); EOS # 0.2 10^3/uL (0.0-0.50); EOS % 2.3 % (0.0-3.0); HEMATOCRIT 46.4 % (42.0-52.0); LYMPH % 31.6 % (24.0-44.0); MEAN CORPUSCULAR HEMOGLOBIN 27.4 pg (27.0-33.0); MEAN CORPUSCULAR HGB CONC 32.3 g/dl (32.0-36.5); MEAN CORPUSCULAR VOLUME 84.8 fl (80.0-96.0); MONO # 0.5 10^3/uL (0.0-0.8); NEUTROPHILS # 3.6 10^3/uL (1.8-7.7); PLATELET COUNT, AUTOMATED 214 10^3/uL (150-450); RED BLOOD COUNT 5.47 10^6/uL (4.30-6.10); WHITE BLOOD COUNT 6.4 10^3/uL (4.0-10.0)
[2019-06-03 21:04] LABS: ALBUMIN 3.8 GM/DL (3.2-5.2); ALT/SGPT 44 U/L (12-78); BILIRUBIN,TOTAL 0.3 MG/DL (0.2-1.0); BLOOD UREA NITROGEN 15 MG/DL (7-18); CARBON DIOXIDE LEVEL 23 MEQ/L (21-32); CHLORIDE LEVEL 106 MEQ/L (98-107); CREATININE FOR GFR 1.16 MG/DL (0.70-1.30); GLOMERULAR FILTRATION RATE > 60.0 (>60); GLUCOSE, FASTING 96 MG/DL (70-100); POTASSIUM SERUM 3.9 MEQ/L (3.5-5.1); SODIUM LEVEL 140 MEQ/L (136-145); TOTAL PROTEIN 7.3 GM/DL (6.4-8.2)
== END ==
LOC: M LRY 17:42
PROVIDERS: ATTEND Internal Medicine Hematology & Oncology
DX: Z79.899 Other long term (current) drug therapy (principal)

== ENCOUNTER → 2019-06-19 | Outpatient (CLI) | payer BC, MEDICAID ==
[2019-06-19 20:27] LABS: BASO % 0.6 % (0.0-1.0); EOS # 0.1 10^3/uL (0.0-0.50); EOS % 1.7 % (0.0-3.0); HEMATOCRIT 48.2 % (42.0-52.0); HEMOGLOBIN 15.6 g/dl (13.5-17.5); LYMPH # 1.7 10^3/uL (1.5-4.5); LYMPH % 26.3 % (24.0-44.0); MEAN CORPUSCULAR HEMOGLOBIN 28.5 pg (27.0-33.0); MEAN CORPUSCULAR HGB CONC 32.4 g/dl (32.0-36.5); MEAN CORPUSCULAR VOLUME 88.1 fl (80.0-96.0); MONO # 0.6 10^3/uL (0.0-0.8); MONO % 8.6 % (0.0-5.0); NEUTROPHILS % 62.3 % (36.0-66.0); PLATELET COUNT, AUTOMATED 207 10^3/uL (150-450); RED BLOOD COUNT 5.47 10^6/uL (4.30-6.10); WHITE BLOOD COUNT 6.4 10^3/uL (4.0-10.0)
[2019-06-19 21:02] LABS: ALBUMIN 3.7 GM/DL (3.2-5.2); ALT/SGPT 46 U/L (12-78); BILIRUBIN,TOTAL 0.4 MG/DL (0.2-1.0); BLOOD UREA NITROGEN 17 MG/DL (7-18); CALCIUM LEVEL 8.9 MG/DL (8.5-10.1); CARBON DIOXIDE LEVEL 26 MEQ/L (21-32); CHLORIDE LEVEL 108 MEQ/L (98-107); CREATININE FOR GFR 1.24 MG/DL (0.70-1.30); GLOMERULAR FILTRATION RATE > 60.0 (>60); GLUCOSE, FASTING 107 MG/DL (70-100); POTASSIUM SERUM 4.3 MEQ/L (3.5-5.1); SODIUM LEVEL 139 MEQ/L (136-145); TOTAL PROTEIN 7.4 GM/DL (6.4-8.2)
== END ==
LOC: M LRY 15:32
PROVIDERS: ATTEND Internal Medicine Hematology & Oncology
DX: C18.2 Malignant neoplasm of ascending colon (principal); G62.0 Drug-induced polyneuropathy; Z79.899 Other long term (current) drug therapy

== ENCOUNTER → 2019-06-30 | Outpatient (CLI) | payer BC, MEDICAID ==
[~2019-06-30] MED LIST changes: +ISOVUE-370 76% 100ML VIAL (Q9967) As Ordered ONE
--- NOTE | 2019-06-30 11:46 | REP ---
SOFT-TISSUE NECK CT STUDY WITH IV CONTRAST: HISTORY: Pain in the throat. Right-sided sore throat times 3 months. History of colon carcinoma. No comparison neck imaging. CT CONTRAST DOSE: 75 mL of intravenous Isovue-370. CT FINDINGS: Visualized intracranial structures are unremarkable. No intraorbital abnormality is seen. There is no CT evidence of paranasal sinus disease. No sclerotic or lytic bony destructive lesion is appreciated. There are degenerative disc changes at C5-6 with anterior and posterior osteophytic ridge formation and degenerative disc narrowing. Lesser changes are seen at C6-7. The retropharyngeal soft tissues are unremarkable. Thyroid lobes are normal and homogeneous. Submandibular and parotid glands are normal and symmetric. There is no evidence of suprahyoid or infrahyoid adenopathy. No mass or cyst is seen. There is a right internal jugular central venous [id number] catheter noted in the field of view. No other vascular abnormality is observed. No airway lesion is seen. Tonsillar and peritonsillar soft tissues are unremarkable. IMPRESSION: Degenerative disc disease is noted. Otherwise negative soft-tissue neck CT study. Electronically Signed by Lucian Solano MD 06/30/2019 02:23 P
== END ==
LOC: M RAD 10:34
PROVIDERS: ATTEND Otolaryngology
DX: M50.322 Other cervical disc degeneration at C5-C6 level (principal); R07.0 Pain in throat; Z85.038 Personal history of other malignant neoplasm of large intestine
CPT/HCPCS: 70491; Q9967

== ENCOUNTER → 2019-07-16 | Outpatient (CLI) | payer BC, MEDICAID ==
[~2019-07-16] MED LIST changes: -ISOVUE-370 76% 100ML VIAL (Q9967) As Ordered ONE
[2019-07-16 20:29] LABS: ALBUMIN 3.8 GM/DL (3.2-5.2); ALT/SGPT 42 U/L (12-78); BILIRUBIN,TOTAL 0.4 MG/DL (0.2-1.0); BLOOD UREA NITROGEN 21 MG/DL (7-18); CARBON DIOXIDE LEVEL 26 MEQ/L (21-32); CHLORIDE LEVEL 106 MEQ/L (98-107); CREATININE FOR GFR 1.28 MG/DL (0.70-1.30); GLOMERULAR FILTRATION RATE > 60.0 (>60); GLUCOSE, FASTING 118 MG/DL (70-100); POTASSIUM SERUM 3.9 MEQ/L (3.5-5.1); SODIUM LEVEL 141 MEQ/L (136-145); TOTAL PROTEIN 7.5 GM/DL (6.4-8.2)
[2019-07-16 20:34] LABS: BASO % 0.7 % (0.0-1.0); EOS # 0.1 10^3/uL (0.0-0.50); EOS % 2.2 % (0.0-3.0); HEMATOCRIT 48.8 % (42.0-52.0); HEMOGLOBIN 16.2 g/dl (13.5-17.5); LYMPH # 1.5 10^3/uL (1.5-4.5); LYMPH % 27.4 % (24.0-44.0); MEAN CORPUSCULAR HEMOGLOBIN 29.3 pg (27.0-33.0); MEAN CORPUSCULAR HGB CONC 33.2 g/dl (32.0-36.5); MEAN CORPUSCULAR VOLUME 88.2 fl (80.0-96.0); MONO # 0.4 10^3/uL (0.0-0.8); MONO % 6.8 % (0.0-5.0); NEUTROPHILS # 3.4 10^3/uL (1.8-7.7); NEUTROPHILS % 62.5 % (36.0-66.0); PLATELET COUNT, AUTOMATED 224 10^3/uL (150-450); RED BLOOD COUNT 5.53 10^6/uL (4.30-6.10); WHITE BLOOD COUNT 5.4 10^3/uL (4.0-10.0)
== END ==
LOC: M LRY 16:51
PROVIDERS: ATTEND Internal Medicine Hematology & Oncology
DX: Z18.2 Retained plastic fragments (principal); G62.0 Drug-induced polyneuropathy

== ENCOUNTER → 2020-07-19 | Outpatient (CLI) | payer BC, MEDICAID ==
[~2020-07-19] MED LIST changes: +OMEP-358 PO; -OMEP20TA PO; +ONDA8TAB10 PO; -ONDA8TAB7 PO
--- NOTE | 2020-08-24 07:41 | REP ---
WHOLE BODY PET-CT SCAN: Delay in reporting results from hospital computer system malfunction from malware/ /ransomeware. COMPARISON: There are no comparison PET-CT scans. There are comparison abdomen/pelvis CT scans dated 06/11/18 and 03/06/19. HISTORY: The study is performed for restaging colon carcinoma post 4 cycles of chemotherapy. TECHNIQUE: Whole body scanning is performed from the skull base to the upper thighs. FINDINGS: NECK AND SUPRACLAVICULAR AREAS: There are no hypermetabolic foci. There is artifactual uptake in the vocal cords and salivary glands. CHEST: There are no hypermetabolic foci. ABDOMEN, PELVIS AND UPPER THIGHS: The patient has a right hemicolectomy with ileocolic anastomosis at the mid- transverse colon. There is an hypermetabolic focus in the right lower quadrant appearing to be within or just medial to the right transversalis muscle along the anterior margin of the right iliac wing with a maximal standard uptake value of 9.39. This is hypermetabolic. The nodule measures 1.1 cm in diameter. This may represent a mesenteric node. There are no other foci in the abdomen, pelvis or upper thighs. There is nonspecific bowel uptake. IMPRESSION: There is a single hypermetabolic focus in the abdomen right lower quadrant, as described, possibly a mesenteric node or possibly arising in the right transversalis muscle. No other hypermetabolic foci are identified. The study is performed with 7.13 mCi of F18 FTG. MTDD
== END ==
LOC: M PLARAD 08:00
PROVIDERS: ATTEND Internal Medicine Hematology & Oncology
DX: C18.2 Malignant neoplasm of ascending colon (principal)
CPT/HCPCS: 78815; A9552

== ENCOUNTER → 2020-12-28 | Outpatient (CLI) | payer BC ==
[~2020-12-28] MED LIST changes: -BUPR150T3 PO; +BUPR150T4 PO; +ESCI10TA16 PO; -ESCI10TA2 PO; +GABA-282 PO; -GABA-843 PO; +GASTROGRAFIN SOLUTION 30ML (Q9963) As Ordered ONE; +ISOVUE-370 76% 100ML VIAL As Ordered ONE
--- NOTE | 2020-12-29 07:06 | REP ---
INDICATION: CARCINOMATOSIS COMPARISON: 03/14/2018 TECHNIQUE: Axial contrast enhanced images from the thoracic inlet to the upper abdomen using 100 ml Isovue 370 intravenous contrast material followed by CT of the abdomen and pelvis with coronal and sagittal reformations. This CT examination was performed using the following dose reduction techniques: Automated exposure control, adjustment of mA and/or kv according to the patient's size, and use of iterative reconstruction technique. FINDINGS: The lung oconnell well aerated and relatively symmetric/clear. There is a single 9 mm cavitary nodule in the apical left lower lobe (series 204; image 38). No further consolidation, suspicious nodule or mass lesion identified. No effusion. No pneumothorax. No significant axillary, hilar, or mediastinal adenopathy. Mediastinum demonstrates normal thoracic aorta, pulmonary vasculature, and heart/pericardium. [id number] identified with tip in the SVC. Surrounding musculoskeletal structures are intact and without acute osseous abnormality. IMPRESSION: Single 9 mm cavitary nodule in the apical left lower lobe represents a relatively new finding as compared to 2018. <Electronically signed by Joon Peñaloza > 12/29/20 [id number]
--- NOTE | 2020-12-29 07:56 | REP ---
INDICATION: CARCINOMATOSIS. COMPARISON: 03/06/2019 TECHNIQUE: Axial contrast-enhanced images from the lung bases to the pubic symphysis using 100 cc Isovue 370 intravenous contrast material. Delayed images of the abdomen along with coronal and sagittal reformations obtained. This CT examination was performed using the following dose reduction techniques: Automated exposure control, adjustment of mA and/or kv according to the patient's size, and the use of iterative reconstruction technique. FINDINGS: Hepatosteatosis noted without focal hepatic lesion. Spleen, pancreas, gallbladder, bilateral adrenal glands and kidneys are normal. The patient is noted to be status post right hemicolectomy. Small and large bowel is without obstruction or acute inflammatory process. Pelvis demonstrates normal bladder and age-appropriate prostate/seminal vesicles. No ascites. No free air. No intraperitoneal or retroperitoneal adenopathy. Abdominal aorta and vasculature appear normal. Musculoskeletal structures are intact and without acute osseous abnormality. IMPRESSION: No acute abdominopelvic pathology appreciated. No evidence for metastatic disease or recurrence. Hepatosteatosis. <Electronically signed by Joon Peñaloza > 12/29/20 [id number]
== END ==
LOC: M RAD 13:28
DX: C18.9 Malignant neoplasm of colon, unspecified (principal); R91.1 Solitary pulmonary nodule; K76.0 Fatty (change of) liver, not elsewhere classified
CPT/HCPCS: 71260; 74177; Q9963; Q9967

== ENCOUNTER → 2021-02-23 | Outpatient (CLI) | payer BC ==
[~2021-02-23] MED LIST changes: +BUPR150T12 PO; -BUPR150T4 PO; -GASTROGRAFIN SOLUTION 30ML (Q9963) As Ordered ONE; -ISOVUE-370 76% 100ML VIAL As Ordered ONE
--- NOTE | 2021-02-23 12:59 | REP ---
INDICATION: RT SIDED CHEST PAIN. COMPARISON: Comparison chest x-ray March 06, 2019. TECHNIQUE: Two views.. FINDINGS: The lungs are well inflated and free of infiltrate. The pleural angles are sharp. The heart size is normal. Pulmonary vasculature is not increased. No significant bony abnormality is seen. There is a right-sided Kapdzh-C-Ixhv catheter with its tip in the expected location of superior vena cava again noted. There is stable mild fullness in the left hilar silhouette. No acute bony abnormality IMPRESSION: Emhyvt-H-Xlrf catheter in place. Otherwise no acute disease. No change from March 06, 2019. There is stable mild fullness in the left hilar silhouette.. <Electronically signed by Jose Solano > 02/23/21 [id number]
== END ==
LOC: M RAD 12:13
PROVIDERS: ATTEND Physician Assistant
DX: R91.8 Other nonspecific abnormal finding of lung field (principal); Z95.9 Presence of cardiac and vascular implant and graft, unspecified; G62.0 Drug-induced polyneuropathy; E78.3 Hyperchylomicronemia; I15.8 Other secondary hypertension; R73.09 Other abnormal glucose; C18.2 Malignant neoplasm of ascending colon

== ENCOUNTER → 2021-03-28 | Outpatient (CLI) | payer BC ==
[~2021-03-28] MED LIST changes: +GASTROGRAFIN SOLUTION 30ML (Q9963) As Ordered ONE; +ISOVUE-370 76% 100ML VIAL As Ordered ONE
--- NOTE | 2021-03-29 08:30 | REP ---
INDICATION: RESTAGING TO ASSESS PROGRESSION STAGE 5 COLON CA. COMPARISON: Comparison is made with prior CT studies of the abdomen and pelvis dated 28 December 2020 and 06 March 2019. Comparison is also made with PET-CT images from July 19, 2020.. TECHNIQUE: Helical scanning is acquired and 3 mm axial images re-formatted. Coronal and sagittal MPR images are generated. The CT contrast enhancement dose is 100 mL of intravenous Isovue 370. FINDINGS: Digital preliminary conservation assistant radiograph demonstrates a normal bowel gas pattern. the lung bases appear clear. There is diffuse fatty infiltration of the liver again noted moderate in degree unchanged. There are areas of slight fat sparing in the left lobe and adjacent to the gallbladder. No abnormality is noted within the gallbladder or pancreas. No focal liver mass lesion is apparent. The spleen is homogeneous in texture normal in size. Normal adrenal glands are again noted. The kidneys enhance symmetrically and are morphologically intact. Stable normal appearing partially fat replaced retroperitoneal lymph nodes are noted unchanged from December 28, 2020. The previously noted right lower quadrant peritoneal lining/a abdominal wall nodule is again seen. This measures 2.2 by 3.4 x 3.2 cm diameter today. This is felt to be increased in size from the 28 December 2020 study this corresponds with the area of PET avidity on July 19, 2020. There is no evidence of mesenteric lymphadenopathy in the small bowel mesentery. The patient is status post right colectomy. No colonic mass lesion is observed. Prostate, seminal vesicles and urinary bladder are unremarkable. No pelvic mass or adenopathy is observed. No extra abdominal soft tissue mass is seen. Bone window settings show no bony destructive lesion. IMPRESSION: Previously noted soft tissue deposit in the right lower quadrant along the abdominal wall/peritoneal lining is increased in size today, 2.2 x 3.4 x 3.2 cm. No new evidence of metastatic disease or adenopathy seen. Fatty infiltration of the liver again noted. <Electronically signed by Jose Solano > 03/29/21 [id number]
--- NOTE | 2021-03-29 08:38 | REP ---
INDICATION: RESTAGING TO ASSESS PROGRESSION STAGE 5 COLON CA. COMPARISON: Comparison CT study of the chest is from December 28, 2020.. TECHNIQUE: Helical scanning is acquired following the intravenous injection of 100 mL of Isovue 370. Coronal and sagittal MPR images are generated. 3 mm axial images are re-formatted. FINDINGS: Preliminary marketing analytics analyst view is unremarkable. There is a right internal jugular Solfju-O-Iyue catheter noted in place. There is no evidence of pleural effusion or pericardial effusion. No hilar or mediastinal mass or adenopathy has developed. No extra thoracic mass or adenopathy is seen. Fatty infiltration of the liver is noted. Adrenal glands are normal. Previously noted cavitary nodule in the superior segment of the left lower lobe is again noted. This has increased in size, measuring 13 mm today, previously 11 mm by my measurement. No new pulmonary nodule is appreciated. There is a granulomatous calcification in the left posterolateral pleural angle unchanged. No bony destructive lesion is appreciated. IMPRESSION: The superior segment left lower lobe nodule identified on 28 December 2020 has enlarged slightly as above. No new pulmonary nodule is seen. No new mass or adenopathy. <Electronically signed by Jose Solano > 03/29/21 [id number]
== END ==
LOC: M RAD 15:03
PROVIDERS: ATTEND Internal Medicine Hematology & Oncology
DX: E78.3 Hyperchylomicronemia (principal); I15.8 Other secondary hypertension; R73.09 Other abnormal glucose; C18.2 Malignant neoplasm of ascending colon; R91.8 Other nonspecific abnormal finding of lung field; G62.0 Drug-induced polyneuropathy
CPT/HCPCS: 71260; 74177; Q9963; Q9967

== ENCOUNTER → 2021-05-08 | Outpatient (CLI) | payer BC ==
[~2021-05-08] MED LIST changes: -GASTROGRAFIN SOLUTION 30ML (Q9963) As Ordered ONE; -ISOVUE-370 76% 100ML VIAL As Ordered ONE
--- NOTE | 2021-05-09 10:11 | REP ---
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 COMPARISON: Prior PET-CT 07/19/2020, prior CT chest abdomen and pelvis 03/28/2021 TECHNIQUE: After the intravenous administration of 8.18 mCi of FDG 18 triplane whole-body PET-CT was performed from the skull base to the mid. FINDINGS: The pulmonary nodule seen in the superior segment of the left lower lobe on the latest prior chest CT is abnormally hypermetabolic having a maximal SUV value of 4.49. there is abnormal hypermetabolic activity seen within a nonenlarged right para-aortic lymph node at the mid abdominal level in a retrocaval location. The abnormal nodule seen in the right lower quadrant on the prior abdominal and pelvic CT of 03/28/2021 and measuring approximately 2.2 cm on that exam and seen to be hypermetabolic on the previous PET-CT of 07/19/2020 has not changed significantly in size, however, it has increased in its hypermetabolism today having maximal SUV values of 13.13. There is hypermetabolic activity seen scattered throughout the axial skeleton but this needs to be correlated clinically as the patient did receive chemotherapy and the finding could be secondary to chemo reactive change. No other areas of abnormal hypermetabolic activity is seen in the neck, chest, abdomen, or pelvis. IMPRESSION: Abnormal hypermetabolic activity, as described above, suspicious for metastatic disease. <Electronically signed by Rigo Irvin > 05/09/21 [id number]
== END ==
LOC: M PLARAD 15:33
PROVIDERS: ATTEND Surgery
DX: C18.0 Malignant neoplasm of cecum (principal)
CPT/HCPCS: 78815; A9552

== ENCOUNTER → 2021-07-31 | Outpatient (CLI) | payer BC ==
--- NOTE | 2021-08-01 10:34 | REP ---
INDICATION: DIAGNOSING MALIGNANT NEOPLASM OF ASCENDING COLON. Metastatic colon adenocarcinoma. Patient is post 4 cycles of chemotherapy. The assess response. COMPARISON: Most recent comparison PET-CT study is May 08, 2021. TECHNIQUE: Forty-seven minutes following the intravenous injection of a 8.91 mCi dose of F-18 FDG, three-dimensional PET scintigraphy is acquired from the skull base to the proximal thighs. Triplanar noncontrast CT scanning is acquired through the same anatomic range for attenuation correction, and image registration with scan parameters optimized to minimize radiation exposure to the patient. PET scintigraphy and CT datasets were fused and displayed on a workstation with multiplanar and projection display capability. FINDINGS: Head and neck soft tissues are unremarkable. The previously noted metastatic nodule in the left lung perihilar region is again seen with maximum standard uptake value 4.35, essentially unchanged, previously 4.49. Unchanged in size. There is hypermetabolic jose uptake in celiac axis lymph node, 5.33. There are several foci of hypermetabolic soft tissue deposits in the abdomen. These include a periduodenal, a right mid abdominal small bowel mesenteric focus, a right lower quadrant mesenteric focus, and a right external iliac jose focus. These are all again seen similar to the prior study of May 08, 2020. Relative avidity is essentially unchanged. The most avid focus in the right lower quadrant mesentery where maximum standard uptake value today is 14.34, previously 15.07 these are morphologically unchanged. No new jose focus or soft tissue deposit is seen in the abdomen or pelvis. There is a tiny equivocal pericaval lymph node on today's scan maximum standard uptake value 3.10. This is equivocal. No other new focus is appreciated. No new pulmonary parenchymal uptake is seen. IMPRESSION: Multifocal hypermetabolic metastatic uptake essentially stable from the most recent prior PET-CT study of May 08, 2021 as above. <Electronically signed by Jose Solano > 08/01/21 1033
== END ==
LOC: M PLARAD 14:25
PROVIDERS: ATTEND Internal Medicine Hematology & Oncology
DX: E78.3 Hyperchylomicronemia (principal); I15.8 Other secondary hypertension; R73.09 Other abnormal glucose; C18.2 Malignant neoplasm of ascending colon; R91.8 Other nonspecific abnormal finding of lung field; G62.0 Drug-induced polyneuropathy
CPT/HCPCS: 78815; A9552

== ENCOUNTER → 2021-11-13 | Outpatient (CLI) | payer BC ==
[~2021-11-13] MED LIST changes: +ONDA-84 PO; -ONDA8TAB10 PO
== END ==
LOC: M PLARAD 14:01
PROVIDERS: ATTEND Internal Medicine Hematology & Oncology
DX: C18.2 Malignant neoplasm of ascending colon (principal); E78.3 Hyperchylomicronemia; I15.8 Other secondary hypertension; R73.09 Other abnormal glucose; K76.0 Fatty (change of) liver, not elsewhere classified; I70.0 Atherosclerosis of aorta
CPT/HCPCS: 78815; A9552

== ENCOUNTER → 2022-02-05 | Outpatient (CLI) | payer BC | LOC: M PLARAD 08:34 | PROVIDERS: ATTEND Internal Medicine Hematology & Oncology | DX: C18.2 Malignant neoplasm of ascending colon (principal); E78.3 Hyperchylomicronemia; I15.8 Other secondary hypertension; R73.09 Other abnormal glucose | CPT/HCPCS: 78815; A9552 ==

== ENCOUNTER 2022-03-11 15:53 | Emergency (ER) | payer BC ==
[~2022-03-11] VITALS: Ht 182.9 cm; Wt 91.0 kg
[2022-03-11] MEDS ORDERED: NS 1,000 ML IV ONE (16:25)
[2022-03-11] MEDS ORDERED: ONDANSETRON 4MG/2ML VIAL IV ONE (16:25)
[2022-03-11 18:07] LABS: BASO % 0.1 % (0.0-1.0); EOS % 0.3 % (0.0-3.0); HEMATOCRIT 45.5 % (42.0-52.0); HEMOGLOBIN 15.1 g/dl (13.5-17.5); LYMPH # 0.6 10^3/uL (1.5-5.0); LYMPH % 8.1 % (24.0-44.0); MEAN CORPUSCULAR HEMOGLOBIN 27.8 pg (27.0-33.0); MEAN CORPUSCULAR HGB CONC 33.2 g/dl (32.0-36.5); MEAN CORPUSCULAR VOLUME 83.8 fl (80.0-96.0); MONO # 0.3 10^3/uL (0.0-0.8); MONO % 4.4 % (2.0-8.0); NEUTROPHILS # 6.1 10^3/uL (1.5-8.5); NEUTROPHILS % 86.4 % (36.0-66.0); RED BLOOD COUNT 5.43 10^6/uL (4.30-6.10)
[2022-03-11 18:09] LABS: PLATELET COUNT, AUTOMATED 97 10^3/uL (150-450)
[2022-03-11 18:13] LABS: ALT/SGPT 33 U/L (12-78); BILIRUBIN,DIRECT 0.2 MG/DL (0.0-0.2); BILIRUBIN,TOTAL 1.7 MG/DL (0.2-1.0); BLOOD UREA NITROGEN 19 MG/DL (7-18); CALCIUM LEVEL 8.4 MG/DL (8.5-10.1); CARBON DIOXIDE LEVEL 27 MEQ/L (21-32); CHLORIDE LEVEL 94 MEQ/L (98-107); CREATININE FOR GFR 0.94 MG/DL (0.70-1.30); FREE T4 1.23 NG/DL (0.76-1.46); GLOMERULAR FILTRATION RATE > 60.0 (>56); GLUCOSE, FASTING 90 MG/DL (70-100); LIPASE 107 U/L (73-393); POTASSIUM SERUM 4.5 MEQ/L (3.5-5.1); SODIUM LEVEL 132 MEQ/L (136-145); TOTAL PROTEIN 6.4 GM/DL (6.4-8.2)
[2022-03-11 20:54] VITALS: BP 131/72
== END 2022-03-11 20:58 | disposition home or self-care (01) ==
LOC: M ED 15:53
DX: R11.2 Nausea with vomiting, unspecified (principal); R53.81 Other malaise; R51.9 Headache, unspecified; C18.9 Malignant neoplasm of colon, unspecified; Z90.49 Acquired absence of other specified parts of digestive tract; K76.0 Fatty (change of) liver, not elsewhere classified; D50.9 Iron deficiency anemia, unspecified; F32.A Depression, unspecified; F41.9 Anxiety disorder, unspecified; Z88.1 Allergy status to other antibiotic agents; Z79.899 Other long term (current) drug therapy
CPT/HCPCS: 70450; 71045; 74176; 80048; 80076; 83690; 84439; 84443; 84484; 85025; 85049; 85055; 87798; 93005; 93041; 94760; 96361; 96374; 99285; J2405

== ENCOUNTER → 2022-04-16 | Outpatient (CLI) | payer BC | LOC: M PLARAD 10:28 | PROVIDERS: ATTEND Internal Medicine Hematology & Oncology | DX: C18.2 Malignant neoplasm of ascending colon (principal); R91.8 Other nonspecific abnormal finding of lung field; E78.3 Hyperchylomicronemia; I15.8 Other secondary hypertension; R73.09 Other abnormal glucose; G62.0 Drug-induced polyneuropathy | CPT/HCPCS: 78815; A9552 ==

== ENCOUNTER → 2022-08-20 | Outpatient (CLI) | payer BC | LOC: M PLARAD 08:47 | PROVIDERS: ATTEND Internal Medicine Hematology & Oncology | DX: C18.2 Malignant neoplasm of ascending colon (principal); R91.8 Other nonspecific abnormal finding of lung field; E78.3 Hyperchylomicronemia; I15.8 Other secondary hypertension; R73.09 Other abnormal glucose; G62.0 Drug-induced polyneuropathy | CPT/HCPCS: 78815; A9552 ==

== ENCOUNTER → 2022-09-20 | Outpatient (CLI) | payer BC ==
[~2022-09-20] MED LIST changes: +ALLO100T PO; +ATEN25TA PO; +LIDOCAINE 1% MDV 20ML VIAL As Ordered ONE; +LISI10TA22 PO; +LONS1TAB2 PO; +MORP20SO PO; +ONDA4TAB6 PO; +XARE10TA PO
[2022-09-20 12:00] VITALS: BP 94/53
== END ==
LOC: M IRPRO 09:05
PROVIDERS: ATTEND Internal Medicine Hematology & Oncology
DX: C78.7 Secondary malignant neoplasm of liver and intrahepatic bile duct (principal); C18.2 Malignant neoplasm of ascending colon; K59.00 Constipation, unspecified; R91.8 Other nonspecific abnormal finding of lung field; E87.3 Alkalosis; I15.8 Other secondary hypertension; R73.09 Other abnormal glucose; G62.0 Drug-induced polyneuropathy

== ENCOUNTER → 2022-12-04 | Outpatient (CLI) | payer BC ==
[~2022-12-04] MED LIST changes: -LIDOCAINE 1% MDV 20ML VIAL As Ordered ONE
== END ==
LOC: M PLARAD 10:10
PROVIDERS: ATTEND Internal Medicine Hematology & Oncology
DX: C18.2 Malignant neoplasm of ascending colon (principal)
CPT/HCPCS: 78815; A9552

== ENCOUNTER → 2023-03-07 | Outpatient (REF) | payer BC ==
[2023-03-07 15:20] LABS: BASO % 0.1 % (0.0-1.0); EOS % 0.3 % (0.0-3.0); HEMATOCRIT 37.5 % (42.0-52.0); HEMOGLOBIN 12.3 g/dl (13.5-17.5); LYMPH # 0.3 10^3/uL (1.5-5.0); LYMPH % 4.1 % (24.0-44.0); MEAN CORPUSCULAR HEMOGLOBIN 30.5 pg (27.0-33.0); MEAN CORPUSCULAR HGB CONC 32.8 g/dl (32.0-36.5); MEAN CORPUSCULAR VOLUME 93.1 fl (80.0-96.0); MONO # 0.8 10^3/uL (0.0-0.8); MONO % 10.5 % (2.0-8.0); NEUTROPHILS # 6.3 10^3/uL (1.5-8.5); RED BLOOD COUNT 4.03 10^6/uL (4.30-6.10); WHITE BLOOD COUNT 7.6 10^3/uL (4.0-10.0)
[2023-03-07 15:45] LABS: PLATELET COUNT, AUTOMATED 92 10^3/uL (150-450)
[2023-03-07 15:49] LABS: ALBUMIN 2.5 G/DL (3.2-5.2); ALKALINE PHOSPHATASE 70 U/L (46-116); ALT/SGPT 26 U/L (7.0-40); AST/SGOT 16 U/L (<34); BILIRUBIN,TOTAL 0.4 MG/DL (0.3-1.2); BLOOD UREA NITROGEN 12 MG/DL (9-23); CALCIUM LEVEL 8.1 MG/DL (8.5-10.1); CARBON DIOXIDE LEVEL 24 MMOL/L (20-31); CHLORIDE LEVEL 105 MMOL/L (98-107); CREATININE FOR GFR 0.62 MG/DL (0.70-1.30); GLOMERULAR FILTRATION RATE > 60.0 (>56); GLUCOSE, FASTING 77 MG/DL (60-100); POTASSIUM SERUM 3.4 MMOL/L (3.5-5.1); SODIUM LEVEL 138 MMOL/L (136-145); TOTAL PROTEIN 5.3 G/DL (5.7-8.2)
== END ==
LOC: M LAB REF 14:27
PROVIDERS: ATTEND Internal Medicine Hematology & Oncology
DX: E86.0 Dehydration (principal); R06.00 Dyspnea, unspecified; G89.3 Neoplasm related pain (acute) (chronic); C18.2 Malignant neoplasm of ascending colon; K59.00 Constipation, unspecified; R91.8 Other nonspecific abnormal finding of lung field; E78.3 Hyperchylomicronemia; I15.8 Other secondary hypertension; R73.09 Other abnormal glucose; G62.0 Drug-induced polyneuropathy

== ENCOUNTER → 2023-03-11 | Outpatient (CLI) | payer BC | LOC: M PLARAD 08:52 | PROVIDERS: ATTEND Internal Medicine Hematology & Oncology | DX: C18.2 Malignant neoplasm of ascending colon (principal); G89.3 Neoplasm related pain (acute) (chronic); E78.3 Hyperchylomicronemia; I15.8 Other secondary hypertension; R73.09 Other abnormal glucose | CPT/HCPCS: 78815; A9552 ==

== ENCOUNTER → 2023-03-27 | Outpatient (CLI) | payer BC ==
[~2023-03-27] VITALS: Ht 182.9 cm; Wt 63.4 kg
[~2023-03-27] MED LIST changes: +ALLO300T2 PO; +ATIV1TAB10 PO; +DEXA6TAB PO; +DILA4TAB13 PO; +DILA8TAB5 PO; +DULC5TAB PO; +FLOM0.4C39 PO; +MORP1TAB22 PO; +OMEP40CA5 PO; +PARO20TA4 PO; +[UNRECOGNIZED DRUG - CODE] PO
[2023-03-27 07:56] VITALS: BP 112/73
== END ==
LOC: M PAL 07:45
PROVIDERS: ATTEND Nurse Practitioner Adult Health
DX: C18.2 Malignant neoplasm of ascending colon (principal); C78.7 Secondary malignant neoplasm of liver and intrahepatic bile duct; Z92.21 Personal history of antineoplastic chemotherapy; Z51.5 Encounter for palliative care; G89.3 Neoplasm related pain (acute) (chronic); K59.00 Constipation, unspecified; Z66 Do not resuscitate; Z79.891 Long term (current) use of opiate analgesic; Z79.899 Other long term (current) drug therapy; Z88.1 Allergy status to other antibiotic agents; R53.83 Other fatigue

== ENCOUNTER → 2023-03-28 | Outpatient (CLI) | payer BC | LOC: M PAIN 12:00 | PROVIDERS: ATTEND Anesthesiology | DX: R10.84 Generalized abdominal pain (principal); M79.2 Neuralgia and neuritis, unspecified; M79.18 Myalgia, other site; I10 Essential (primary) hypertension; G25.81 Restless legs syndrome; Z85.038 Personal history of other malignant neoplasm of large intestine; Z86.718 Personal history of other venous thrombosis and embolism; Z88.8 Allergy status to other drugs, medicaments and biological substances; Z79.891 Long term (current) use of opiate analgesic; Z79.899 Other long term (current) drug therapy ==

== ENCOUNTER → 2023-03-29 | Outpatient (CLI) | payer BC ==
[~2023-03-29] MED LIST changes: +BUPIVACAINE HCL 0.25% 10ML VIAL As Ordered ONE; +BUPIVACAINE HCL 0.25% 30ML VIAL As Ordered ONE; +LIDOCAINE 1% MDV 20ML VIAL As Ordered ONE; +TRIAMCINOLONE ACETONIDE SUSP 40MG/ML 1ML VIAL As Ordered ONE; +diazePAM 5MG TABLET As Ordered ONE
== END ==
LOC: M PAIN 13:00
PROVIDERS: ATTEND Anesthesiology
DX: M79.18 Myalgia, other site (principal); G89.29 Other chronic pain; I10 Essential (primary) hypertension; G25.81 Restless legs syndrome; Z86.711 Personal history of pulmonary embolism; Z88.8 Allergy status to other drugs, medicaments and biological substances; Z79.891 Long term (current) use of opiate analgesic; Z79.899 Other long term (current) drug therapy
CPT/HCPCS: 20552; J3301; S0020

== ENCOUNTER → 2023-04-02 | Outpatient (CLI) | payer BC ==
[~2023-04-02] MED LIST changes: -BUPIVACAINE HCL 0.25% 10ML VIAL As Ordered ONE; -BUPIVACAINE HCL 0.25% 30ML VIAL As Ordered ONE; -LIDOCAINE 1% MDV 20ML VIAL As Ordered ONE; -TRIAMCINOLONE ACETONIDE SUSP 40MG/ML 1ML VIAL As Ordered ONE; -diazePAM 5MG TABLET As Ordered ONE
== END ==
LOC: M PAL 15:51
PROVIDERS: ATTEND Nurse Practitioner Adult Health
DX: C18.2 Malignant neoplasm of ascending colon (principal); C78.7 Secondary malignant neoplasm of liver and intrahepatic bile duct; C78.00 Secondary malignant neoplasm of unspecified lung; R10.9 Unspecified abdominal pain; G89.3 Neoplasm related pain (acute) (chronic); R53.83 Other fatigue; K59.00 Constipation, unspecified; Z92.21 Personal history of antineoplastic chemotherapy; Z51.5 Encounter for palliative care; Z79.891 Long term (current) use of opiate analgesic; Z79.899 Other long term (current) drug therapy; Z66 Do not resuscitate

== ENCOUNTER → 2023-04-03 | Outpatient (CLI) | payer BC ==
[2023-04-03 15:56] LABS: BASO % 0.3 % (0.0-1.0); HEMATOCRIT 27.9 % (42.0-52.0); HEMOGLOBIN 9.1 g/dl (13.5-17.5); LYMPH # 0.1 10^3/uL (1.5-5.0); LYMPH % 2.2 % (24.0-44.0); MEAN CORPUSCULAR HEMOGLOBIN 30.4 pg (27.0-33.0); MEAN CORPUSCULAR HGB CONC 32.6 g/dl (32.0-36.5); MEAN CORPUSCULAR VOLUME 93.3 fl (80.0-96.0); MONO # 0.3 10^3/uL (0.0-0.8); MONO % 5.8 % (2.0-8.0); NEUTROPHILS # 5.1 10^3/uL (1.5-8.5); NEUTROPHILS % 87.1 % (36.0-66.0); PLATELET COUNT, AUTOMATED 148 10^3/uL (150-450); RED BLOOD COUNT 2.99 10^6/uL (4.30-6.10); WHITE BLOOD COUNT 5.8 10^3/uL (4.0-10.0)
[2023-04-03 16:25] LABS: ALKALINE PHOSPHATASE 83 U/L (46-116); ALT/SGPT 117 U/L (7.0-40); AST/SGOT 54 U/L (<34); BILIRUBIN,TOTAL 0.6 MG/DL (0.3-1.2); BLOOD UREA NITROGEN 25 MG/DL (9-23); CALCIUM LEVEL 8.8 MG/DL (8.5-10.1); CARBON DIOXIDE LEVEL 28 MMOL/L (20-31); CHLORIDE LEVEL 97 MMOL/L (98-107); CREATININE FOR GFR 0.63 MG/DL (0.70-1.30); GLOMERULAR FILTRATION RATE > 60.0 (>56); GLUCOSE, FASTING 146 MG/DL (60-100); POTASSIUM SERUM 4.1 MMOL/L (3.5-5.1); SODIUM LEVEL 133 MMOL/L (136-145); TOTAL PROTEIN 6.2 G/DL (5.7-8.2)
== END ==
LOC: M LAB 15:06
PROVIDERS: ATTEND Internal Medicine Hematology & Oncology
DX: E86.0 Dehydration (principal); R06.00 Dyspnea, unspecified; G89.3 Neoplasm related pain (acute) (chronic); C18.2 Malignant neoplasm of ascending colon; K59.00 Constipation, unspecified; R91.8 Other nonspecific abnormal finding of lung field; E78.3 Hyperchylomicronemia; I15.8 Other secondary hypertension; R73.09 Other abnormal glucose; G62.0 Drug-induced polyneuropathy

== ENCOUNTER → 2023-04-03 | Outpatient (CLI) | payer BC | LOC: M ONCR 14:00 | PROVIDERS: ATTEND General Practice | DX: C78.6 Secondary malignant neoplasm of retroperitoneum and peritoneum (principal); C18.9 Malignant neoplasm of colon, unspecified; E78.5 Hyperlipidemia, unspecified; I10 Essential (primary) hypertension; M10.9 Gout, unspecified; Z79.01 Long term (current) use of anticoagulants; Z79.52 Long term (current) use of systemic steroids; Z79.899 Other long term (current) drug therapy; Z80.42 Family history of malignant neoplasm of prostate; Z86.19 Personal history of other infectious and parasitic diseases; Z88.1 Allergy status to other antibiotic agents ==

== ENCOUNTER 2023-04-18 13:53 | Outpatient (RCR) | payer BC ==
[~2023-04-18 13:53] MED LIST changes: -PARO30TA3 PO
[2023-04-22] MEDS ORDERED: PARO30TA3 PO (15:42)
[2023-05-01] MEDS ORDERED: HYDR4TAB PO (09:15)
[2023-05-01] MEDS ORDERED: PARO20TA3 PO (09:15)
[2023-05-01] MEDS ORDERED: LONS0.27 PO (09:15)
[2023-05-01] MEDS ORDERED: METH-1177 PO (10:25)
[2023-05-01] MEDS ORDERED: DILA8TAB5 PO (12:23)
[2023-05-07] MEDS ORDERED: METH-1177 PO (09:44)
== END 2023-05-01 ==
LOC: M ONCR 13:53
PROVIDERS: ATTEND General Practice
DX: C78.6 Secondary malignant neoplasm of retroperitoneum and peritoneum (principal)

== ENCOUNTER → 2023-04-18 | Outpatient (CLI) | payer BC ==
[~2023-04-18] VITALS: Ht 182.9 cm; Wt 59.5 kg
[~2023-04-18] MED LIST changes: +PARO30TA3 PO
[2023-04-18 10:10] VITALS: BP 115/75
== END ==
LOC: M PAL 09:58
PROVIDERS: ATTEND Nurse Practitioner Adult Health
DX: C18.9 Malignant neoplasm of colon, unspecified (principal); C78.6 Secondary malignant neoplasm of retroperitoneum and peritoneum; C78.7 Secondary malignant neoplasm of liver and intrahepatic bile duct; C78.00 Secondary malignant neoplasm of unspecified lung; Z51.5 Encounter for palliative care; G89.3 Neoplasm related pain (acute) (chronic); Z79.891 Long term (current) use of opiate analgesic; Z79.899 Other long term (current) drug therapy; R45.89 Other symptoms and signs involving emotional state; R53.83 Other fatigue; K59.00 Constipation, unspecified; Z66 Do not resuscitate; Z79.52 Long term (current) use of systemic steroids; Z79.01 Long term (current) use of anticoagulants; Z88.8 Allergy status to other drugs, medicaments and biological substances; Z92.21 Personal history of antineoplastic chemotherapy; Z92.3 Personal history of irradiation; M53.3 Sacrococcygeal disorders, not elsewhere classified; M10.9 Gout, unspecified; Z86.718 Personal history of other venous thrombosis and embolism; Z90.49 Acquired absence of other specified parts of digestive tract; Z80.42 Family history of malignant neoplasm of prostate; Z80.8 Family history of malignant neoplasm of other organs or systems
CPT/HCPCS: 93005; G0463

== ENCOUNTER → 2023-04-25 | Outpatient (CLI) | payer BC ==
[~2023-04-25] MED LIST changes: +HYDR4TAB PO; +LONS0.27 PO; +METH-1177 PO; +PARO20TA3 PO; +PARO30TA3 PO
== END ==
LOC: M PAIN 14:30
PROVIDERS: ATTEND Anesthesiology
DX: M79.10 Myalgia, unspecified site (principal); G89.29 Other chronic pain; I10 Essential (primary) hypertension; G25.81 Restless legs syndrome; Z86.711 Personal history of pulmonary embolism; Z88.8 Allergy status to other drugs, medicaments and biological substances; Z79.891 Long term (current) use of opiate analgesic; Z79.899 Other long term (current) drug therapy

== ENCOUNTER → 2023-05-01 | Outpatient (CLI) | payer BC ==
[2023-05-01 08:47] LABS: BASO % 0.5 % (0.0-1.0); EOS % 1.6 % (0.0-3.0); HEMATOCRIT 31.2 % (42.0-52.0); HEMOGLOBIN 9.9 g/dl (13.5-17.5); LYMPH # 0.2 10^3/uL (1.5-5.0); LYMPH % 9.7 % (24.0-44.0); MEAN CORPUSCULAR HEMOGLOBIN 30.7 pg (27.0-33.0); MEAN CORPUSCULAR HGB CONC 31.7 g/dl (32.0-36.5); MEAN CORPUSCULAR VOLUME 96.9 fl (80.0-96.0); MONO # 0.3 10^3/uL (0.0-0.8); MONO % 15.7 % (2.0-8.0); NEUTROPHILS # 1.3 10^3/uL (1.5-8.5); RED BLOOD COUNT 3.22 10^6/uL (4.30-6.10); WHITE BLOOD COUNT 1.9 10^3/uL (4.0-10.0)
[2023-05-01 09:15] LABS: ALBUMIN 2.7 G/DL (3.2-5.2); ALKALINE PHOSPHATASE 166 U/L (46-116); ALT/SGPT 50 U/L (7.0-40); AST/SGOT 48 U/L (<34); BLOOD UREA NITROGEN 11 MG/DL (9-23); CALCIUM LEVEL 8.6 MG/DL (8.5-10.1); CARBON DIOXIDE LEVEL 28 MMOL/L (20-31); CHLORIDE LEVEL 104 MMOL/L (98-107); CREATININE FOR GFR 0.44 MG/DL (0.70-1.30); GLOMERULAR FILTRATION RATE > 60.0 (>56); GLUCOSE, FASTING 104 MG/DL (60-100); POTASSIUM SERUM 3.4 MMOL/L (3.5-5.1); SODIUM LEVEL 140 MMOL/L (136-145); TOTAL PROTEIN 5.3 G/DL (5.7-8.2)
[2023-05-01 09:49] LABS: PLATELET COUNT, AUTOMATED 80 10^3/uL (150-450)
== END ==
LOC: M LAB 08:19
PROVIDERS: ATTEND Internal Medicine Hematology & Oncology
DX: E86.0 Dehydration (principal); R06.00 Dyspnea, unspecified; G89.3 Neoplasm related pain (acute) (chronic); K59.00 Constipation, unspecified; C18.2 Malignant neoplasm of ascending colon; R91.8 Other nonspecific abnormal finding of lung field; E78.3 Hyperchylomicronemia; I15.8 Other secondary hypertension; R73.09 Other abnormal glucose; G62.0 Drug-induced polyneuropathy

== ENCOUNTER → 2023-05-01 | Outpatient (CLI) | payer BC ==
[~2023-05-01] VITALS: Ht 182.9 cm; Wt 58.4 kg
[2023-05-01 09:06] VITALS: BP 113/76
== END ==
LOC: M PAL 08:49
PROVIDERS: ATTEND Nurse Practitioner Adult Health
DX: C18.9 Malignant neoplasm of colon, unspecified (principal); C78.6 Secondary malignant neoplasm of retroperitoneum and peritoneum; C78.7 Secondary malignant neoplasm of liver and intrahepatic bile duct; C78.00 Secondary malignant neoplasm of unspecified lung; Z51.5 Encounter for palliative care; G89.3 Neoplasm related pain (acute) (chronic); R53.83 Other fatigue; K59.00 Constipation, unspecified; R63.0 Anorexia; L89.151 Pressure ulcer of sacral region, stage 1; Z66 Do not resuscitate; Z79.891 Long term (current) use of opiate analgesic; Z79.899 Other long term (current) drug therapy; Z92.21 Personal history of antineoplastic chemotherapy; Z79.52 Long term (current) use of systemic steroids; Z88.1 Allergy status to other antibiotic agents

== ENCOUNTER → 2023-05-03 | Outpatient (CLI) | payer BC | LOC: M RAD 08:56 | PROVIDERS: ATTEND Internal Medicine Hematology & Oncology | DX: E86.0 Dehydration (principal); R06.00 Dyspnea, unspecified; G89.3 Neoplasm related pain (acute) (chronic); K59.00 Constipation, unspecified; C18.2 Malignant neoplasm of ascending colon; R91.8 Other nonspecific abnormal finding of lung field; E78.3 Hyperchylomicronemia; I15.8 Other secondary hypertension; R73.09 Other abnormal glucose; G62.0 Drug-induced polyneuropathy ==

== ENCOUNTER → 2023-05-07 | Outpatient (CLI) | payer BC ==
[~2023-05-07] VITALS: Ht 182.9 cm; Wt 57.3 kg
[2023-05-07 09:05] VITALS: BP 112/82; TEMP 97.1; O2SAT 98
== END ==
LOC: M PAL 08:56
PROVIDERS: ATTEND Nurse Practitioner Adult Health
DX: C18.9 Malignant neoplasm of colon, unspecified (principal); C78.6 Secondary malignant neoplasm of retroperitoneum and peritoneum; C78.7 Secondary malignant neoplasm of liver and intrahepatic bile duct; C78.00 Secondary malignant neoplasm of unspecified lung; Z51.5 Encounter for palliative care; G89.3 Neoplasm related pain (acute) (chronic); Z79.891 Long term (current) use of opiate analgesic; Z79.899 Other long term (current) drug therapy; K59.00 Constipation, unspecified; R63.0 Anorexia; R53.83 Other fatigue; L89.151 Pressure ulcer of sacral region, stage 1; Z92.21 Personal history of antineoplastic chemotherapy; Z66 Do not resuscitate; Z79.01 Long term (current) use of anticoagulants; Z88.1 Allergy status to other antibiotic agents

== ENCOUNTER → 2023-05-14 | Outpatient (REF) | payer BC ==
[2023-05-14 14:59] LABS: APPEARANCE, URINE HAZY (CLEAR); BACTERIA, URINE AUTO NEGATIVE (NEGATIVE); BILIRUBIN, URINE AUTO 2+ (NEGATIVE); BLOOD, URINE BLOOD NEGATIVE (NEGATIVE); CALCIUM OXALATE CRYSTALS SMALL; COLOR, URINE AMBER (YELLOW); GLUCOSE, URINE (UA) AUTO NEGATIVE (NEGATIVE); KETONE, URINE AUTO TRACE mg/dL (NEGATIVE); LEUKOCYTE ESTERASE, URINE AUTO NEGATIVE (NEGATIVE); MUCUS, URINE LARGE (NEGATIVE); NITRITE, URINE AUTO NEGATIVE (NEGATIVE); PROTEIN, URINE AUTO 1+ mg/dL (NEGATIVE); RBC, URINE AUTO 2 /HPF (0-3); SPECIFIC GRAVITY URINE AUTO 1.025 (1.002-1.035); SQUAMOUS EPITHELIAL CELL UR AU 0 /HPF (0-6); WBC, URINE AUTO 8 /HPF (0-3)
[2023-05-14 15:15] LABS: BASO % 0.5 % (0.0-1.0); EOS % 0.2 % (0.0-3.0); HEMATOCRIT 33.2 % (42.0-52.0); HEMOGLOBIN 10.2 g/dl (13.5-17.5); LYMPH # 0.2 10^3/uL (1.5-5.0); LYMPH % 3.5 % (24.0-44.0); MEAN CORPUSCULAR HEMOGLOBIN 31.7 pg (27.0-33.0); MEAN CORPUSCULAR HGB CONC 30.7 g/dl (32.0-36.5); MEAN CORPUSCULAR VOLUME 103.1 fl (80.0-96.0); MONO # 0.5 10^3/uL (0.0-0.8); MONO % 7.9 % (2.0-8.0); NEUTROPHILS # 5.8 10^3/uL (1.5-8.5); NEUTROPHILS % 87.4 % (36.0-66.0); PLATELET COUNT, AUTOMATED 114 10^3/uL (150-450); RED BLOOD COUNT 3.22 10^6/uL (4.30-6.10); WHITE BLOOD COUNT 6.6 10^3/uL (4.0-10.0)
[2023-05-14 15:49] LABS: ALBUMIN 2.2 G/DL (3.2-5.2); ALKALINE PHOSPHATASE 336 U/L (46-116); ALT/SGPT 35 U/L (7.0-40); AST/SGOT 58 U/L (<34); BILIRUBIN,TOTAL 10.9 MG/DL (0.3-1.2); BLOOD UREA NITROGEN 14 MG/DL (9-23); CALCIUM LEVEL 7.9 MG/DL (8.5-10.1); CARBON DIOXIDE LEVEL 28 MMOL/L (20-31); CHLORIDE LEVEL 101 MMOL/L (98-107); CREATININE FOR GFR 0.49 MG/DL (0.70-1.30); GLOMERULAR FILTRATION RATE > 60.0 (>56); GLUCOSE, FASTING 96 MG/DL (60-100); POTASSIUM SERUM 3.2 MMOL/L (3.5-5.1); SODIUM LEVEL 138 MMOL/L (136-145); TOTAL PROTEIN 4.8 G/DL (5.7-8.2)
== END ==
LOC: M LAB REF 13:28
PROVIDERS: ATTEND Internal Medicine Hematology & Oncology
DX: E86.0 Dehydration (principal); R06.00 Dyspnea, unspecified; G89.3 Neoplasm related pain (acute) (chronic); K59.00 Constipation, unspecified; C18.2 Malignant neoplasm of ascending colon; E78.3 Hyperchylomicronemia; R91.8 Other nonspecific abnormal finding of lung field; I15.8 Other secondary hypertension; R73.09 Other abnormal glucose; G62.0 Drug-induced polyneuropathy

== ENCOUNTER 2023-05-16 11:31 | Outpatient (RCR) | payer BC ==
[~2023-05-16 11:31] MED LIST changes: -LORA2CON5 PO; -METH10CO3 PO; -MORP1SOL PO
[2023-05-16] MEDS ORDERED: METH10CO3 PO (12:50)
[2023-05-16] MEDS ORDERED: MORP1SOL PO (12:50)
[2023-05-16] MEDS ORDERED: LORA2CON5 PO (12:55)
== END 2023-05-31 ==
LOC: M ONCR 11:31
PROVIDERS: ATTEND General Practice
DX: Z51.0 Encounter for antineoplastic radiation therapy (principal); C78.6 Secondary malignant neoplasm of retroperitoneum and peritoneum

== ENCOUNTER → 2023-05-16 | Outpatient (CLI) | payer BC ==
[~2023-05-16] MED LIST changes: +LORA2CON5 PO; +METH10CO3 PO; +MORP1SOL PO
[2023-05-16 10:47] VITALS: BP 101/74; TEMP 97.7; O2SAT 97
== END ==
LOC: M PAL 10:38
PROVIDERS: ATTEND Nurse Practitioner Adult Health
DX: C18.9 Malignant neoplasm of colon, unspecified (principal); C78.6 Secondary malignant neoplasm of retroperitoneum and peritoneum; C78.7 Secondary malignant neoplasm of liver and intrahepatic bile duct; C78.00 Secondary malignant neoplasm of unspecified lung; Z51.5 Encounter for palliative care; G89.3 Neoplasm related pain (acute) (chronic); Z92.3 Personal history of irradiation; Z79.891 Long term (current) use of opiate analgesic; K76.82 Hepatic encephalopathy; Z90.49 Acquired absence of other specified parts of digestive tract; R53.83 Other fatigue; R63.0 Anorexia; Z66 Do not resuscitate; Z79.01 Long term (current) use of anticoagulants; Z79.899 Other long term (current) drug therapy; Z88.1 Allergy status to other antibiotic agents; Z92.21 Personal history of antineoplastic chemotherapy; R10.9 Unspecified abdominal pain